=== PATIENT | female | born 1950 | race Caucasian/White ===

== ENCOUNTER 2018-10-28 19:08 | Inpatient (IN) ==
--- NOTE | 2018-10-28 19:31 | PDOC ---
Gen Adult / Medical Screen HPI - General Chief Complaint: General Medical Stated Complaint: New Rx and has not felt good since taking Date Seen by Provider: 10/28/18 Time Seen by Provider: 19:23 Source: POSITIVE: Patient Exam Limitations: POSITIVE: No limitations Nurse's Notes Reviewed & Considered: Yes - History of Present Illness Initial Comments: This is a well-developed, well-nourished, 68-year-old female complaining of ab dominal pain with nausea and vomiting. Patient had a sudden onset of nausea and vomiting that began this morning after taking the medication she was prescribed last Monday. On Monday she was started on prednisone for some back pain. She had no adverse responses until this morning. She presents now with tremulousness, nausea, and vomiting. She is clammy to the touch. She denies any headache, no sore throat, no chest pain or shortness of breath, she does have nausea and vomiting but denies any diarrhea, she does have epigastric and right upper quadrant abdominal pain, denies any hematuria or dysuria, she does have sweats and chills but denies any measured fevers. Patient admits to 3-4 b eers once a week however family member present states she drinks every day. Body Location Affected: REPORTS: Abdomen Timing: REPORTS: Abrupt Duration: <24 hours Similar Symptoms Previously: No Recent Care Received: REPORTS: Recently Seen, Treated by MD Any Prior Injuries Related to Current Complaint?: No - Patient Home Medications Home Medications: Home Medications RX: Betamethasone/Propylene Glyc [Diprolene AF 0.05% Cream] 0.5 gm TOPICAL BID #1 tube 09/01/14 RX: Olmesartan/Hydrochlorothiazide [BENICAR HCT] 1 tab ORAL QD #90 tab 11/25/15 spironolactone 50 mg tablet 50 mg PO QD #90 tab 04/26/17 potassium chloride ER 10 mEq capsule,extended release 10 meq PO QDAY #30 cap 02/08/18 escitalopram 20 mg tablet 20 mg PO QDAY #90 tab 03/28/18 mupirocin 2 % topical ointment 1 applic TOPICAL BID #22 g 06/13/18 olmesartan 40 mg-hydrochlorothiazide 12.5 mg tablet 1 tab PO QDAY #90 tab 06/21/18 omeprazole 20 mg capsule,delayed release 40 mg PO QDAY #180 cap 07/13/18 prednisone 10 mg tablet See Rx Instructions PO QDAY #15 tab 10/25/18 tramadol 50 mg tablet See Rx Instructions PO Q8H PRN #40 tab 10/25/18 - Patient Allergies Allergies/Adverse Reactions: Allergies Allergy/AdvReac Type Severity Reaction Status Date / Time No Known Allergies Allergy Verified 10/28/18 19:13 Past Medical History - heen HEENT History: Denies History Cardiovascular History: Hypertension, Hyperlipidemia Respiratory History: Snoring Gastrointestinal History: GERD Genitourinary History: Other (please comment) Additional Genitourinary History: 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 Endocrine History: Denies History Musculoskeletal History: Arthritis, Back Pain Prosthesis or Implant: Yes (B KNEE) Additional Musculoskeletal History: psoriatic arthritis Neurological History: Migraines Blood Disorders: Denies History Psychiatric History: Depression, Anxiety Disorders History of Sexually Transmitted Diseases: No Female Reproductive History: Denies History Obstetrical History: Denies History Cancer History: Skin In Past Year Been Physically Harmed or Verbally Threatened: No History of MDRO: No History of Other Communicable Diseases: No Tobacco Use: Never Smoker Alcohol Use: Occasionally In the Past 12 Months, Have Used or Abuse Any Substance: None Previous Surgical History: Yes Type / Date of Surgery: SHOAIB TKR. PARTIAL HYST. NECK FUSION. RIGHT ANKLE SURGERY. PARTIAL RIGHT KIDNEY REMOVAL DUE TO A BENIGN MASS Anesthesia Reactions: No Malignant Hyperthermia: No Significant Family History: No pertinent family hx Additional Family History: MOTHER-HEART/CA ROS - Limitations ROS Limitations: No Limitations Constitution: REPORTS: Chills, Diaphoresis Cardiovascular: REPORTS: Denies Cardiac Symptoms Respiratory: REPORTS: Denies Resp Symptoms Neurological: REPORTS: Other (Tremulousness) Gastrointestinal: REPORTS: Abdominal Pain, Nausea, Vomitting Endocrine: REPORTS: Denies Symptoms Musculoskeletal: REPORTS: Denies MS Symptoms Genitourinary: REPORTS: Denies Symptoms Eyes: REPORTS: Denies Symptoms ENT: REPORTS: Denies Symptoms Skin: REPORTS: Diaphoresis Lympathic: REPORTS: Denies Lympathic Symptoms Immunologic: POSITIVE: Denies Symptoms Psychiatric: POSITIVE: Denies Psych Symptoms Gen Adult/Medical Screen Exam - General Appearance General Appearance: POSITIVE: Alert, Cooperative, No Evidence of Trauma, Severe Distress - HEENT HEENT: POSITIVE: Head Inspection Nml, Eyes Inspection Nml, Ears Inspection Nml, Nose Inspection Nml, Oral/Dental Inspect. Nml, Pharynx Inspect. Nml, PERRL, EOMI - Pupils Pupil Size: 4 mm: Bilateral - Neck Neck: POSITIVE: Normal Inspection - Respiratory Respiratory: POSITIVE: No Respiratory Distress, Breath Sounds Normal, Chest Non- Tender - Cardiovascular Cardiovascular: POSITIVE: Regular Rate & Rhythm, No Murmur, No Gallop, PMI Normal Peripheral Pulses: Radial (L): 4+ - Abdomen Abdomen: Soft: (All Quadrants), Normal Bowel Sounds: (All Quadrants), Denies Tenderness: (All Quadrants), No Splenomegaly: (All Quadrants), No Hepatomegaly: (All Quadrants), No Guarding: (All Quadrants), No Rebound: (All Quadrants), No Palpable Pulse: (All Quadrants), No Palpabale Mass: (All Quadrants), No Distention: (All Quadrants), No Rigidity: (All Quadrants) - Back Back: POSITIVE: Normal Inspection - Neurological / Psychological Mental Status: POSITIVE: Mood Normal, Affect Normal Orientation: POSITIVE: Oriented x 3 - Skin Skin: POSITIVE: Normal Color, Warm, No Rash, Diaphoresis - Extremities Extremity: Non-Tender: (All Extremities), Normal ROM: (All Extremities), Normal Inspection: (All Extremities), Pelvis Stable: (All Extremities) Procedures - Laceration/Wound Repair Did patient have a laceration repair: No Gen Adlt/Medical Scrn Progress - Results Reviewed by me Xrays/CTs/US Reviewed by me: Yes Discussed with Radiologist: Yes Lab Results Reviewed by Me: Yes CBC and BMP: 10/28/18 19:50 10/28/18 19:50 Lab Results:: Laboratory Results 10/28/18 10/28/18 10/28/18 19:50 19:50 19:50 WBC 9.52 RBC 3.27 L Hgb 12.4 Hct 33.8 L MCV 103.4 H MCH 37.9 H MCHC 36.7 RDW Std Deviation 50.4 H RDW Coeff of [place] 13.7 Plt Count 195 MPV 9.6 Immature Gran % (Auto) 0.2 Neut % (Auto) 88.1 H Lymph % (Auto) 3.0 L [place] % (Auto) 8.7 Eos % (Auto) 0 Baso % (Auto) 0 Immature Gran # (Auto) 0.02 Neut # (Auto) 8.38 Lymph # (Auto) 0.29 [place] # (Auto) 0.83 H Eos # (Auto) 0 Baso # (Auto) 0 WBC Morphology Comment Normal morphology Plt Morphology Comment Normal morphology RBC Morph Comment See comments VBG pH VBG pCO2 VBG HCO3 VBG Base Excess Sodium 132 L Potassium 4.0 Chloride 96 L Carbon Dioxide 15 L Anion Gap 21 H BUN 57 H Creatinine 1.4 H Estimated GFR 37 BUN/Creatinine Ratio 40.71 H Glucose 105 Calculated Osmolality 289.0 Lactic Acid 5.2 H Calcium 10.1 Total Bilirubin 1.0 GGT 108 H AST 82 H ALT 50 Alkaline Phosphatase 90 Total Creatine Kinase 107 CK-MB (CK-2) Troponin I Handheld Total Protein 8.5 H Albumin 4.8 Globulin 3.7 Albumin/Globulin Ratio 1.20 L Amylase 659 H Lipase 7523 H* TSH Serum Alcohol 10/28/18 10/28/18 10/28/18 19:50 19:50 19:50 WBC RBC Hgb Hct MCV MCH MCHC RDW Std Deviation RDW Coeff of [place] Plt Count MPV Immature Gran % (Auto) Neut % (Auto) Lymph % (Auto) [place] % (Auto) Eos % (Auto) Baso % (Auto) Immature Gran # (Auto) Neut # (Auto) Lymph # (Auto) [place] # (Auto) Eos # (Auto) Baso # (Auto) WBC Morphology Comment Plt Morphology Comment RBC Morph Comment VBG pH 7.53 H VBG pCO2 20 L VBG HCO3 16 L VBG Base Excess -6 L Sodium Potassium Chloride Carbon Dioxide Anion Gap BUN Creatinine Estimated GFR BUN/Creatinine Ratio Glucose Calculated Osmolality Lactic Acid Calcium Total Bilirubin GGT AST ALT Alkaline Phosphatase Total Creatine Kinase CK-MB (CK-2) 3.56 Troponin I Handheld 0.000 Total Protein Albumin Globulin Albumin/Globulin Ratio Amylase Lipase TSH 0.480 Serum Alcohol 10/28/18 19:50 WBC RBC Hgb Hct MCV MCH MCHC RDW Std Deviation RDW Coeff of [place] Plt Count MPV Immature Gran % (Auto) Neut % (Auto) Lymph % (Auto) [place] % (Auto) Eos % (Auto) Baso % (Auto) Immature Gran # (Auto) Neut # (Auto) Lymph # (Auto) [place] # (Auto) Eos # (Auto) Baso # (Auto) WBC Morphology Comment Plt Morphology Comment RBC Morph Comment VBG pH VBG pCO2 VBG HCO3 VBG Base Excess Sodium Potassium Chloride Carbon Dioxide Anion Gap BUN Creatinine Estimated GFR BUN/Creatinine Ratio Glucose Calculated Osmolality Lactic Acid Calcium Total Bilirubin GGT AST ALT Alkaline Phosphatase Total Creatine Kinase CK-MB (CK-2) Troponin I Handheld Total Protein Albumin Globulin Albumin/Globulin Ratio Amylase Lipase TSH Serum Alcohol 55 H EKG Interpretation:: POSITIVE: Normal Sinus Rhythm, Normal ST/T - Patient's Progress Pain Medication Addressed: POSITIVE: Yes Re-Examine Time: 21:39 Status: POSITIVE: Improved MDM / ED Course: Patient was evaluated, an IV started, blood drawn and sent to lab for studies, EKG, chest x-ray, and CT of her abdomen were obtained. Findings: CBC shows white count of 9.52, hemoglobin of 12.4, hematocrit 33.8, with a neutrophil predominance of 88.1% and lymphocytes are 3%. Blood gases show pH of 7.53, PCO2 of 20, bicarbonate 16, base excess is -6. CMP shows abnormalities with a sodium of 132, chloride of 96, BUN of 57, CO2 of 15, c reatinine 1.4, anion gap of 21, AST of 108, ALT of 82, the remainder the panel was normal. Amylase is elevated at 659, lipase is elevated at 7523. Lactic acid is elevated at 3.2. Gamma GT is 108. TSH is normal at 0.480. EKG, per my interpretation, shows sinus rhythm with a rate of 84 beats a minute no ST elevations. Chest x-ray shows bibasilar opacity suggestive of atelectasis versus infiltrate with an enlarged cardiomediastinal silhouette. CT scan of her abdomen, per my interpretation, shows inflammation around the pancreas indicative of pancreatitis. Blood alcohol is 55 Assessment: #1 Pancreatitis, alcohol induced. #2 alcohol intoxication. #3 anemia. #4 hyponatremia. #5 renal insufficiency. Plan: Patient being admitted NPO and she is receiving normal saline, Zofran, pain medicine, and Ativan. - Consult Consult (If Yes, Name of Consulting MD & Time Called): Yes (Dr. Naranjo) Consulting MD will see pt:: POSITIVE: [facility] [place] Admit Counseled: POSITIVE: Patient, Family, RE: Lab Results, RE: Radiology Results, RE: DX, RE: Need for F/U Patient Care Time - Estimated PCT Patient Care Time (In Minutes): 60 Vital Signs - Recent Vital Signs Vital Signs: Vital Signs (Last 8 hours) Temp Pulse Resp BP Pulse Ox 10/28/18 19:08 97.7 F 93 22 150/91 98 - VS Reviewed Vital Signs Reviewed: Yes Discharge Clinical Impression: Pancreatitis Discharge Disposition: Admit to Inpatient Condition: Stable Patient Problem(s) Reviewed: Yes Date Decision to Admit to Inpatient: 10/28/18 Time Decision to Admit to Inpatient: 21:34
[2018-10-28] MEDS ORDERED: MORPHINE SULFATE 2 MG/1 ML IVP ONE (19:32)
[2018-10-28] MEDS ORDERED: Sodium Chloride 0.9% 1,000 ML PRIMARY IV ONE ×2 (19:32→21:00)
[2018-10-28] MEDS ORDERED: LORazepam 2 MG/1 ML VIAL IVP ONE (19:32)
[2018-10-28] MEDS ORDERED: ONDANSETRON 4 MG/2 ML VIAL IVP ONE (19:32)
--- NOTE | 2018-10-28 19:47 | EKG ---
[address] [address] Measurements Intervals [place] Rate: 84 P: 68 [place]: 186 QRS: 44 QRSD: 101 T: 46 QT: 381 QTc: 422 Interpretive Statements SINUS RHYTHM No previous ECG available for comparison Electronically Signed On 10-29-18 12:48:14 MDT by Marshal Carrizales MD [email or web address]
[2018-10-28 20:00] LABS: BASOPHILS # (AUTO) 0 10*3/UL; BASOPHILS % (AUTO) 0 % (0-1); EOSINOPHILS # (AUTO) 0 10*3/UL; EOSINOPHILS % (AUTO) 0 % (0-8); Hematocrit [HCT] 33.8 % (37.0-47.0); Hemoglobin [HGB] 12.4 g/dL (12.0-16.0); LYMPHOCYTES # (AUTO) 0.29 10*3/uL; MEAN CORPUSCULAR HEMOGLOBIN 37.9 PG (27-31); MEAN CORPUSCULAR HGB CONC 36.7 g/dL (33-37); MEAN CORPUSCULAR VOLUME 103.4 FL (81-99); MEAN PLATELET VOLUME 9.6 FL (7.4-12.2); MONOCYTES # (AUTO) 0.83 10*3/UL (0.3-0.8); MONOCYTES % (AUTO) 8.7 % (5-15); NEUTROPHILS # (AUTO) 8.38 10*3/UL; NEUTROPHILS % (AUTO) 88.1 % (50-80); RED BLOOD COUNT 3.27 10^6/uL (4.20-5.40)
[2018-10-28 20:07] LABS: VENOUS PH 7.53 (7.32-7.42)
[2018-10-28 20:10] LABS: PLATELET MORPHOLOGY COMMENT NORMAL MORPHOLOGY (NORM); RBC MORPHOLOGY COMMENT SEE COMMENTS (NORM); WBC MORPHOLOGY COMMENT NORMAL MORPHOLOGY (NORM)
[2018-10-28 20:11] LABS: BUN/CREATININE RATIO 40.71 (6-20); SERUM ALBUMIN 4.8 g/dL (3.5-4.8)
--- NOTE | 2018-10-28 21:00 | DI ---
EXAM: XR Chest, 1 View CLINICAL HISTORY: ITS.REASON epigastric pain Physician Notes: Tech Comments: TECHNIQUE: Frontal view of the chest. COMPARISON: 03/23/2009. FINDINGS: Lungs: Bibasilar opacities which represent atelectasis or developing infiltrate. Mildly prominent pulmonary vascularity. Pleural space: No significant pleural effusion or pneumothorax. Heart: Enlarged cardiomediastinal silhouette. Mediastinum: See above. Bones/joints: Spinal hardware noted. IMPRESSION: 1. Bibasilar opacities which represent atelectasis or developing infiltrate. 2. Enlarged cardiomediastinal silhouette.
--- NOTE | 2018-10-28 22:13 | DI ---
EXAM: CT Abdomen and Pelvis Without Intravenous Contrast CLINICAL HISTORY: ITS.REASON pain Physician Notes: Tech Comments: TECHNIQUE: Axial computed tomography images of the abdomen and pelvis without intravenous contrast. COMPARISON: CT 10/07/15. FINDINGS: Limitations: Evaluation of the abdominal viscera is limited without intravenous contrast. Lung bases: Bibasilar scarring/atelectasis. Mediastinum: Small hiatal hernia. ABDOMEN: Liver: Unremarkable. Gallbladder and bile ducts: Mildly distended gallbladder with dense material. Pancreas: Extensive peripancreatic stranding and fluid compatible with pancreatitis. No organized fluid collection. Evaluation for pancreatic necrosis is limited without contrast. Spleen: Unremarkable. Adrenals: Unremarkable. Kidneys and ureters: Postsurgical changes at the right inferior kidney with nodular densities in the adjacent fat, unclear significance. Hydronephrosis or ureteral stone. Right upper pole renal hypodensity, minimally larger now measuring 2.5 cm. Stomach and bowel: Scattered colonic diverticula. Areas of mild colonic wall thickening or underdistention. Duodenal wall thickening, may be reactive. PELVIS: Appendix: No findings to suggest acute appendicitis. Bladder: Unremarkable. Reproductive: Unremarkable as visualized. ABDOMEN and PELVIS: Intraperitoneal space: No free air. Bones/joints: Degenerative changes in the spine. Soft tissues: Small fat-containing ventral hernias. Vasculature: Atherosclerotic disease. Lymph nodes: Unremarkable. Other findings: Findings suggestive of pelvic floor relaxation. IMPRESSION: 1. Peripancreatic stranding and fluid compatible with pancreatitis. 2. Postsurgical changes at the right inferior kidney with nodular densities in the adjacent fat, unclear significance. Followup imaging may be considered if there is concern for malignant etiology. 3. Additional findings, as above.
[2018-10-28] MEDS ORDERED: LIDOCAINE W/ SODIUM BICARB 0.5 ML SYR SUBD PRN ×2 (22:42→22:48)
[2018-10-28] MEDS ORDERED: DOCUSATE 100 MG CAPSULE PO PRN (22:42)
[2018-10-28] MEDS ORDERED: LORazepam 1 mg tab (ETOH withdrawal) PO PRN (22:48)
--- NOTE | 2018-10-28 22:58 | PDOC ---
HPI - History of Present Illness Date of Service: 10/28/18 Time of Service: 22:00 Chief Complaint: Abdominal pain that started today, back pain and right scapular pain of 2 weeks' duration History of Present Illness: This is a 68 years old female with medical history significant for history of hypertension, hypercholesterolemia and history of psoriatic arthritis on some kind of IV infusion she's not sure about the name maybe Tati, who presented to the hospital with history vomiting multiple times today and pain described as in the middle of the abdomen in addition she did report that she's been having back pain for the last 2 weeks in addition to right scapular pain. Pain is constant. No diarrhea. Apparently she did go see Dr. Greco few days ago she was put on prednisone. Abdominal pain according to her started today though there was no vomiting or abdominal pain yesterday. She came into the ER and had multiple investigations. lab test did show acute renal failure, pancreatitis, she was given fluids and pain medication. Alcohol level was more than 55, then she was admitted. She rates her pain now maybe 8-9 out of 10. Mainly in the abdomen. When asked specifically about alcohol she said she didn't drink today maybe she had a drink last night. She said she drinks a few times a month. Past Medical History Medical History: 1. Hypertension. 2. History of psoriatic arthritis, she said she was on Enbrel and was switched to IV infusion not sure about the name the last one was a few months ago. 3. History of hypercholesterolemia. 4. History of depression Surgical History: 1. History of hysterectomy. 2. History of lumbar spinal fusion. 3. History of knee replacement. 4. History of removal of the lower parts of the right kidney, she said is not malignant Family History: Reviewed an Not Pertinent Past Social History: She doesn't smoke, no drugs, she said that she drinks a few times a month. Tobacco Use: Never Smoker In the Past 12 Months, Have Used or Abuse Any of the Following Substance: None Medication / Allergies Home Medications: Home Medications Medication Instructions Recorded Confirmed Betamethasone/Propylene Glyc 0.5 gm TOPICAL BID #1 tube 09/01/14 10/28/18 [Diprolene AF 0.05% Cream] Olmesartan/Hydrochlorothiazide 1 tab ORAL QD #90 tab 11/25/15 02/04/16 [BENICAR HCT] spironolactone 50 mg tablet 50 mg PO QD #90 tab 04/26/17 10/28/18 potassium chloride ER 10 mEq 10 meq PO QDAY #30 cap 02/08/18 10/28/18 capsule,extended release escitalopram 20 mg tablet 20 mg PO QDAY #90 tab 03/28/18 10/28/18 mupirocin 2 % topical ointment 1 applic TOPICAL BID #22 g 06/13/18 10/28/18 olmesartan 40 1 tab PO QDAY #90 tab 06/21/18 10/28/18 mg-hydrochlorothiazide 12.5 mg tablet omeprazole 20 mg capsule,delayed 40 mg PO QDAY #180 cap 07/13/18 10/28/18 release prednisone 10 mg tablet See Rx Instructions PO QDAY #15 tab 10/25/18 10/28/18 tramadol 50 mg tablet See Rx Instructions PO Q8H PRN #40 10/25/18 10/28/18 tab Allergies/Adverse Reactions: Allergies Allergy/AdvReac Type Severity Reaction Status Date / Time No Known Allergies Allergy Verified 10/28/18 19:13 Review of Systems - Review of Systems All Systems: Reviewed & No Additional Complaints Except as Stated Exam - Vitals Vital Signs: Vital Signs Temperature 97.9 F Temperature Source Temporal Artery Scan Pulse Rate [Pulse Oximeter] 110 Pulse Rate 89 Respiratory Rate 20 Blood Pressure [Left Arm] 150/91 Blood Pressure 131/88 Pulse Ox 92 Oxygen Delivery Method Room Air Height 5 ft 6 in Weight 195 lb - General Additional General Exam Details: Mucous membrane dry, she has tremor - Head Head Exam: Normal Inspection - Eye Eye Exam: POSITIVE: Normal Appearance - ENT ENT Exam: POSITIVE: Normal Exam - Neck Neck Exam: Normal Inspection - Respiratory Respiratory Exam: POSITIVE: Clear to Auscultation - Bilaterally - Cardiovascular Cardiovascular Exam: POSITIVE: Tachycardia - GI/Abdominal GI/Abdominal Exam: POSITIVE: Normal Bowel Sounds, Non Distended, Soft, No Organomegaly Additional GI/Abdominal Exam Details: Tenderness is present in the reny-umbilical area - Rectal Rectal Exam: POSITIVE: Deferred - External Exam: POSITIVE: Deferred - Extremities Extremities Exam: POSITIVE: Normal Inspection - Back Back Exam: POSITIVE: Normal Inspection - Neurological Neurological Exam: POSITIVE: Alert, Oriented x 3, CN II-XII Intact, No Facial Droop, Speech Intact / Clear, Moves All Extremities Equally - Psychiatric Psychiatric Exam: POSITIVE: Normal Affect - Integumentary Integumentary Exam: POSITIVE: Dry Results - Labs CBC and BMP: 10/29/18 04:29 10/29/18 04:29 - EKG Data -: EKG Interpreted by Me Rate: Normal EKG Shows Normal: Sinus Rhythm - EKG Data EKG Interpretation: Other Additional EKG Details: There is some deviation and ST segment in leads 2 and aVF, uncertain significance may be a nonischemic clinical variant, will repeat her troponin. - Imaging Status: Report Reviewed by Me (CT abdomen 1. Peripancreatic stranding and fluid compatible with pancreatitis. 2. Postsurgical changes at the right inferior kidney with nodular densities in the adjacent fat, unclear significance. Followup imaging may be considered if there is concern for malignant etiology.) Assessment and Plan - Patient Problems (1) Pancreatitis Current Visit: Yes Status: Acute Comment: Likely acute alcoholic pancreatitis. However because of the distention of the gallbladder that was described on CT Will order ultrasound of the abdomen tomorrow. Code(s): K85.90 - Acute pancreatitis without necrosis or infection, unspecified (2) Acute renal failure Current Visit: Yes Status: Acute Comment: Likely secondary to dehydration, will hydrate her and repeat her labs in the morning. Code(s): N17.9 - Acute kidney failure, unspecified (3) History of hypertension Current Visit: Yes Status: Acute Comment: We'll watch her blood pressure depending on her kidney function tomorrow will decide about restarting her medication. Code(s): Z86.79 - Personal history of other diseases of the circulatory system (4) Depression Current Visit: Yes Status: Acute Comment: Same medication Code(s): F32.9 - Major depressive disorder, single episode, unspecified (5) Increased anion gap metabolic acidosis Current Visit: Yes Status: Acute Comment: She has an anion gap metabolic acidosis, probably secondary to lactic acidosis and the renal failure, the pH is high though indicating also presence of respiratory alkalosis with the metabolic acidosis. Code(s): E87.2 - Acidosis (6) Lactate blood increase Current Visit: Yes Status: Acute Comment: Likely secondary to hypoperfusion from fluid loss, will order blood culture and will continue with hydration and repeate labs Code(s): R79.89 - Other specified abnormal findings of blood chemistry
[2018-10-28] MEDS: MORPHINE SULFATE 2 MG/1 ML IVP PRN (23:08)
[2018-10-28] MEDS: LORazepam Inj(ETOH withdrawal) 2 MG/ML VIAL IVP PRN (23:09)
[2018-10-28] MEDS: Lactated Ringers 1,000 ML PRIMARY IV SCH (23:18)
[2018-10-29] MEDS: LORazepam Inj(ETOH withdrawal) 2 MG/ML VIAL IVP PRN ×5 (02:15→22:31)
[2018-10-29 05:15] LABS: BASOPHILS # (AUTO) 0 10*3/UL; BASOPHILS % (AUTO) 0 % (0-1); EOSINOPHILS # (AUTO) 0 10*3/UL; EOSINOPHILS % (AUTO) 0 % (0-8); Hematocrit [HCT] 30.4 % (37.0-47.0); Hemoglobin [HGB] 10.9 g/dL (12.0-16.0); LYMPHOCYTES # (AUTO) 0.31 10*3/uL; MEAN CORPUSCULAR HEMOGLOBIN 37.8 PG (27-31); MEAN CORPUSCULAR HGB CONC 35.9 g/dL (33-37); MEAN CORPUSCULAR VOLUME 105.6 FL (81-99); MONOCYTES # (AUTO) 0.69 10*3/UL (0.3-0.8); MONOCYTES % (AUTO) 9.7 % (5-15); NEUTROPHILS # (AUTO) 6.09 10*3/UL; NEUTROPHILS % (AUTO) 85.5 % (50-80); RED BLOOD COUNT 2.88 10^6/uL (4.20-5.40)
[2018-10-29 06:24] LABS: PLATELET MORPHOLOGY COMMENT NORMAL MORPHOLOGY (NORM); RBC MORPHOLOGY COMMENT NORMAL MORPHOLOGY (NORM); WBC MORPHOLOGY COMMENT NORMAL MORPHOLOGY (NORM)
[2018-10-29 06:27] LABS: BILIRUBIN,URINE NEGATIVE (NEG); CLARITY,URINE CLEAR (CLEAR); COLOR,URINE YELLOW (Y); GLUCOSE, URINE (UA) NEGATIVE (NEG); OCCULT BLOOD,URINE NEGATIVE (NEG); PROTEIN,URINE NEGATIVE (NEG); UROBILINOGEN,URINE 0.2 EU/dL (0.2)
[2018-10-29 06:38] LABS: BACTERIA,URINE FEW; RBC,URINE 0-1 /hpf; SQUAMOUS EPITHELIAL CELL,UR MODERATE; URINE SAMPLE TYPE VOIDED SPECIMEN
[2018-10-29 06:55] LABS: BUN/CREATININE RATIO 41.81 (6-20); SERUM ALBUMIN 3.8 g/dL (3.5-4.8)
[2018-10-29] MEDS: Lactated Ringers 1,000 ML PRIMARY IV SCH ×2 (07:19→18:52)
[2018-10-29] MEDS: MORPHINE SULFATE 2 MG/1 ML IVP PRN ×2 (07:22→22:32)
--- NOTE | 2018-10-29 08:20 | PDOC(PROG) ---
Date of Service: 10/29/18 Time of Service: 08:15 Interval History: Subjective She feel a little bit better today compared to last night. No vomiting since she's been here. She rates her abdominal pain maybe 7 out of 10. She did admit to the nurse from last night that she drinks more than what she told me. when I asked her again she was a still evasive but she said she drinks beer but not every day and she drinks also over the weekend and have some shots. Objective : Data - Labs CBC and BMP: 10/29/18 04:29 10/29/18 04:29 Objective : Exam - General Additional General Exam Details: Sleepy but arousable - Head Head Exam: Normal Inspection - Eye Eye Exam: Normal Appearance - ENT ENT Exam: Normal Exam - Neck Neck Exam: Normal Inspection - Respiratory Respiratory Exam: Clear to Auscultation - Bilaterally - Cardiovascular Cardiovascular Exam: RRR - GI/Abdominal GI/Abdominal Exam: Normal Bowel Sounds, Non Distended, Soft, No Organomegaly Additional GI/Abdominal Exam Details: Tenderness still in the epigastrium present - Rectal Rectal Exam: Deferred - External Exam: Deferred Exam: Deferred - Extremities Extremities Exam: Normal Inspection - Back Back Exam: Normal Inspection - Neurological Additional Neurological Exam Details: Sleepy but arousable no focal finding on exam. - Psychiatric Psychiatric Exam: Normal Affect - Integumentary Integumentary Exam: Normal Color Assessment and Plan - Patient Problems (1) Pancreatitis Current Visit: Yes Status: Acute Comment: Likely alcoholic pancreatitis. Continue IV hydration. After the ultrasound will probably put her on ice chips Code(s): K85.90 - Acute pancreatitis without necrosis or infection, unspecified (2) Acute renal failure Current Visit: Yes Status: Acute Comment: The kidney function is improving. Continue hydration. Code(s): N17.9 - Acute kidney failure, unspecified (3) History of hypertension Current Visit: Yes Status: Acute Comment: We'll watch her blood pressure Code(s): Z86.79 - Personal history of other diseases of the circulatory system (4) Depression Current Visit: Yes Status: Acute Comment: Same medications Code(s): F32.9 - Major depressive disorder, single episode, unspecified (5) Increased anion gap metabolic acidosis Current Visit: Yes Status: Acute Comment: This is resolved Code(s): E87.2 - Acidosis (6) Lactate blood increase Current Visit: Yes Status: Acute Comment: This is resolved Code(s): R79.89 - Other specified abnormal findings of blood chemistry
[2018-10-29] MEDS: ENOXAPARIN SODIUM 40 MG/0.4 ML SYRINGE SUBCUT SCH (10:28)
[2018-10-29] MEDS: ESCITALOPRAM 10 MG TABLET PO SCH (10:29)
--- NOTE | 2018-10-29 15:43 | DI ---
US Abdomen Limited 10/29/2018 8:00 AM History: [facility] [place] DI ^abdominal pain, pancreatitis Comparison: CT abdomen/pelvis 10/28/2018. Procedure: Amin scale and color doppler right upper quadrant ultrasound. Findings: The liver is normal in size, echogenicity, and echotexture. There are no focal lesions visu alized. The gallbladder is hydropic, without evidence of stones or pericholecystic fluid. There is a normal gallbladder wall measuring 2 mm. A sonographic Stern's sign was present. The common duct lópez ures 5 mm. There is no intrahepatic biliary ductal dilatation. The pancreas was not visualized due to shadowing bowel gas. The right kidney measures 9.3 cm in lengt h. There is no evidence of obstructive uropathy or echogenic shadowing nephroliths. There is a 2.6 x 2.0 x 2.5 cm simple cyst in the upper pole of the right kidney. There is no free fluid seen within t he hepatorenal space. Imaged portions of the aorta and IVC are within normal limits. Impression: 1. There is no cholelithiasis. A sonographic Stern's sign was present. Clinical correlation is recom mended. 2. The pancreas was not visualized due to shadowing bowel gas. 3. Simple right renal cyst.
[2018-10-29] MEDS: PANTOPRAZOLE IV 40 MG VIAL IVP SCH (22:50)
[2018-10-30] MEDS: LORazepam Inj(ETOH withdrawal) 2 MG/ML VIAL IVP PRN (03:34)
[2018-10-30] MEDS: Lactated Ringers 1,000 ML PRIMARY IV SCH ×4 (03:34→23:58)
[2018-10-30 05:05] LABS: BASOPHILS # (AUTO) 0 10*3/UL; BASOPHILS % (AUTO) 0 % (0-1); EOSINOPHILS # (AUTO) 0 10*3/UL; EOSINOPHILS % (AUTO) 0 % (0-8); Hematocrit [HCT] 29.4 % (37.0-47.0); Hemoglobin [HGB] 10.5 g/dL (12.0-16.0); LYMPHOCYTES # (AUTO) 0.81 10*3/uL; MEAN CORPUSCULAR HEMOGLOBIN 38.6 PG (27-31); MEAN CORPUSCULAR HGB CONC 35.7 g/dL (33-37); MEAN CORPUSCULAR VOLUME 108.1 FL (81-99); MEAN PLATELET VOLUME 10.1 FL (7.4-12.2); MONOCYTES # (AUTO) 0.65 10*3/UL (0.3-0.8); MONOCYTES % (AUTO) 8.7 % (5-15); NEUTROPHILS # (AUTO) 5.95 10*3/UL; NEUTROPHILS % (AUTO) 80.1 % (50-80); RED BLOOD COUNT 2.72 10^6/uL (4.20-5.40)
[2018-10-30 05:16] LABS: BLOOD UREA NITROGEN 22 mg/dL (7-22); BUN/CREATININE RATIO 31.42 (6-20); LIPASE 998 IU/L (23-300); SERUM ALBUMIN 3.4 g/dL (3.5-4.8)
[2018-10-30 05:25] LABS: PLATELET MORPHOLOGY COMMENT NORMAL MORPHOLOGY (NORM); RBC MORPHOLOGY COMMENT NORMAL MORPHOLOGY (NORM); WBC MORPHOLOGY COMMENT NORMAL MORPHOLOGY (NORM)
[2018-10-30] MEDS: PANTOPRAZOLE IV 40 MG VIAL IVP SCH (08:36)
[2018-10-30] MEDS: ESCITALOPRAM 10 MG TABLET PO SCH (08:36)
[2018-10-30] MEDS: ENOXAPARIN SODIUM 40 MG/0.4 ML SYRINGE SUBCUT SCH (08:36)
[2018-10-30] MEDS ORDERED: Acetaminophen 1000mg Inj 1,000 MG/100 ML VIAL IV PRN (22:09)
--- NOTE | 2018-10-30 22:24 | PDOC(PROG) ---
Date of Service: 10/30/18 Time of Service: 22:18 Interval History: Patient seen and evaluated earlier. Son, Marshal, present for evaluation. Patient's overall confusion is improved. Her confusion is improved but still present. No chest pain, shortness breath, nausea or vomiting. Not much of an appetite. Her alcohol abuse is really escalated over the last year with family stresses and situations for which she tried to cope with alcohol. Objective : Data - Labs CBC and BMP: 10/30/18 04:12 10/30/18 04:12 Additional Lab Results: 10/30/18 04:12 Calcium 9.3 Total Bilirubin 1.3 H AST 44 H ALT 37 Alkaline Phosphatase 59 Total Protein 6.2 Albumin 3.4 L Globulin 2.8 Amylase 193 H Lipase 998 H Objective : Exam - General General Appearance: No Acute Distress, Cooperative Additional General Exam Details: Vital Signs - Last Taken Temperature 98.4 F 10/30/18 20:45 Pulse Rate 76 10/30/18 21:00 Respiratory Rate 20 10/30/18 20:45 Blood Pressure 122/88 10/30/18 20:45 Pulse Ox 95 10/30/18 21:00 - Eye Eye Exam: No Scleral Icterus - ENT ENT Exam: Mucous Membranes Moist - Neck Neck Exam: JVP is not Raised - Respiratory Respiratory Exam: Clear to Auscultation - Bilaterally, Breathing Non Labored, Decreased Breath Sounds - Cardiovascular Cardiovascular Exam: RRR, No Murmur, No Clicks, No Gallops, No Rubs, No JVD - GI/Abdominal GI/Abdominal Exam: Normal Bowel Sounds, Non Tender, Non Distended, Soft - Extremities Extremities Exam: No Clubbing Present, No Edema Present, No Cyanosis Present - Neurological Neurological Exam: Alert, No Facial Droop, Speech Intact / Clear, Moves All Extremities Equally Additional Neurological Exam Details: She knew who she was, she knew she was in the hospital. Was not overly oriented to time. - Psychiatric Psychiatric Exam: Flat Affect Assessment and Plan - Patient Problems (1) Pancreatitis Current Visit: Yes Status: Acute Code(s): K85.90 - Acute pancreatitis without necrosis or infection, unspecified (2) Alcohol withdrawal Current Visit: Yes Status: Acute Code(s): F10.239 - Alcohol dependence with withdrawal, unspecified Qualifiers: Complication of substance-induced condition: with unspecified complication Qualified Code(s): F10.239 - Alcohol dependence with withdrawal, unspecified (3) Depression Current Visit: Yes Status: Acute Code(s): F32.9 - Major depressive disorder, single episode, unspecified Qualifiers: Depression Type: other depression Qualified Code(s): F32.89 - Other specified depressive episodes (4) Acute renal failure Current Visit: Yes Status: Resolved Code(s): N17.9 - Acute kidney failure, unspecified Qualifiers: Acute renal failure type: unspecified Qualified Code(s): N17.9 - Acute kidney failure, unspecified (5) History of partial nephrectomy Current Visit: Yes Status: Acute Code(s): Z90.5 - Acquired absence of kidney (6) Alcohol abuse Current Visit: Yes Status: Acute Code(s): F10.10 - Alcohol abuse, uncomplicated - Assessment / Plan Additional Assessment/Plan Details: Continue gut rest, IV fluids, stop morphine due to increasing confusion and sedation and switch to acetaminophen for pain. We'll give the Tylenol IV. Get head CT scan and make sure not missing anything there although there are no focal findings to suggest stroke. Speech is intact and clear. Strength is equal bilaterally. Check labs in a.m. Replace potassium. In terms of the discrepancy between kidney findings on CT scan and ultrasound, I think we should get the patient a follow-up urology appointment to evaluate further and determine whether or not any further imaging needs to be done to reevaluate this partial nephrectomy area. The ultrasound seems to suggest its a simple cyst. I would like to get an MRI scan of the abdomen to make sure that there is no evidence of stone. The total bilirubin is minimally elevated, and I want to make sure there is no common bile duct obstruction. I doubt that there is but I think for completeness sake this imaging study makes sense. I started to explore possible alcohol rehabilitation and treatment, and based on the patient's situation (her daughter is Agoraphobic, that'll significant malnutrition, and has some psychiatric issues that require the mother to care for her in the home), and the son works out of town and lives in a different town, intensive outpatient therapy with [facility] makes most sense. We'll have them evaluate when the patient is more mentally clear. I expect several more days of hospital stay due to the above. Continue CIWA protocol. Complex, multiple issues to monitor, IV medications to administer, and disposition issues to solve as noted above.
--- NOTE | 2018-10-30 23:54 | DI ---
History: ITS.REASON confusion Physician Notes: Tech Comments: Exam: CT HEAD Without Contrast Comparison: 06/13/2009 FINDINGS: No intracranial hemorrhage, mass effect or CT evidence of acute infarct. The ventricles are within limits and midline. The paranasal sinuses, mastoids and orbits appear within limits. IMPRESSION: No intracranial hemorrhage, mass effect or CT evidence of acute infarct. May follow-up with nonemergent MRI as warranted.
[2018-10-31] MEDS: PANTOPRAZOLE IV 40 MG VIAL IVP SCH (08:17)
[2018-10-31] MEDS: ENOXAPARIN SODIUM 40 MG/0.4 ML SYRINGE SUBCUT SCH (08:18)
[2018-10-31] MEDS: ESCITALOPRAM 10 MG TABLET PO SCH (08:18)
[2018-10-31] MEDS: Lactated Ringers 1,000 ML PRIMARY IV SCH ×3 (08:19→16:54)
[2018-10-31] MEDS: ONDANSETRON 4 MG/2 ML VIAL IVP PRN (08:48)
[2018-10-31] MEDS ORDERED: CYANOCOBALAMIN 1000 MCG/1 ML VIAL IM ONE (08:50)
[2018-10-31] MEDS: CHOLECALCIFEROL 1000 IU TABLET PO SCH (10:11)
[2018-10-31] MEDS: FOLIC ACID 1 MG TABLET PO SCH (10:11)
--- NOTE | 2018-10-31 10:11 | DI ---
MRI Abdomen WO Contrast 10/30/2018 12:58 PM History: [facility] [place] DI ^pancreatitis, question stone Comparison: Right upper quadrant ultrasound 10/29/2018. CT abdomen/pelvis 10/28/2018. Technique: Multiweighted, multiplanar noncontrast MRCP was performed per routine protocol. Findings: Patient motion during breath hold portion of the exam creates artifact that limits evaluati on of fine anatomic detail. There is signal dropout on opposed phase imaging to suggest hepatic steatosis. No focal lesions are p resent. The gallbladder is moderately distended with no filling defects. There is no gallbladder wall thicken ing or pericholecystic fluid. No intra- or extrahepatic biliary dilatation is noted. There are no def inite large filling defects in the common duct. The pancreatic duct is not dilated. There is normal t apering of the biliary tree to the level of the ampulla. There is no evidence of stricture or stenosi s. Moderate peripancreatic edema and fluid is noted. There is a 2.6 cm simple cyst in the upper pole of the right kidney and postsurgical changes along the inferior pole. There is mild bilateral pararenal fat stranding, a finding associated with chronic medical renal disease. The visualized portions of th e spleen and bilateral adrenal glands exhibit normal MR morphology. Hollow viscus organs demonstrate normal course and caliber. Vascular structures are intact. There is no retroperitoneal or mesenteric lymphadenopathy. Heart size is at the upper limits of normal. Tiny bilateral pleural effusions are no mary. The lung bases are otherwise clear. Osseous structures are unremarkable. Impression: 1. Limited examination due to patient motion. There is no definite cholelithiasis/choledocholithiasis or intra-/extrahepatic biliary dilatation. 2. Moderate peripancreatic edema and fluid is noted, most likely due to acute pancreatitis in the rep orted clinical setting. 3. Hepatic steatosis. 4. There are findings associated with chronic medical renal disease. 5. Borderline cardiomegaly. 6. Tiny bilateral pleural effusions.
[2018-10-31] MEDS: Multivitamin Tab 1 TAB PO SCH (10:12)
--- NOTE | 2018-10-31 13:43 | PDOC(PROG) ---
Date of Service: 10/31/18 Time of Service: 12:30 Interval History: no chest pain, no shortness of breath. has nausea but no vomiting. no abdominal pain. not confused. Objective : Data - Labs CBC and BMP: 10/30/18 04:12 10/30/18 04:12 Additional Lab Results: 10/31/18 10/31/18 10/31/18 04:52 04:52 04:52 Iron 40 TIBC 201 L % Saturation 19.90 Vitamin B12 229 L Vitamin D 25-Hydroxy < 12.8 L Serum Folate 5.22 - Imaging MRI Status: Report Reviewed by Me (MRI of abdomen no CBD blockage) X-Ray Status: Image Reviewed by Me (CT head negative for bleed.) Objective : Exam - General General Appearance: No Acute Distress, Cooperative Additional General Exam Details: Vital Signs - Last Taken Temperature 98.5 F 10/31/18 11:41 Pulse Rate 57 L 10/31/18 13:00 Respiratory Rate 16 10/31/18 11:41 Blood Pressure 143/71 10/31/18 11:41 Pulse Ox 99 10/31/18 13:00 - Eye Eye Exam: No Scleral Icterus - ENT ENT Exam: Mucous Membranes Moist - Neck Neck Exam: JVP is not Raised - Respiratory Respiratory Exam: Breathing Non Labored, Coarse Breath Sounds - Cardiovascular Cardiovascular Exam: RRR, No Murmur, No Clicks, No Gallops, No Rubs, No JVD - GI/Abdominal GI/Abdominal Exam: Normal Bowel Sounds, Non Tender, Non Distended, Soft - Extremities Extremities Exam: No Clubbing Present, No Edema Present, No Cyanosis Present - Neurological Neurological Exam: Alert, Oriented x 3, No Facial Droop, Speech Intact / Clear, Moves All Extremities Equally Assessment and Plan - Patient Problems (1) Pancreatitis Current Visit: Yes Status: Acute Code(s): K85.90 - Acute pancreatitis without necrosis or infection, unspecified Qualifiers: Chronicity: acute Pancreatitis type: alcohol induced (2) Alcohol withdrawal Current Visit: Yes Status: Acute Code(s): F10.239 - Alcohol dependence with withdrawal, unspecified Qualifiers: Complication of substance-induced condition: with unspecified complication Qualified Code(s): F10.239 - Alcohol dependence with withdrawal, unspecified (3) Depression Current Visit: Yes Status: Acute Code(s): F32.9 - Major depressive disorder, single episode, unspecified Qualifiers: Depression Type: other depression Qualified Code(s): F32.89 - Other specified depressive episodes (4) History of partial nephrectomy Current Visit: Yes Status: Acute Code(s): Z90.5 - Acquired absence of kidney (5) Alcohol abuse Current Visit: Yes Status: Acute Code(s): F10.10 - Alcohol abuse, uncomplicated (6) Iron deficiency anemia Current Visit: Yes Status: Acute Code(s): D50.9 - Iron deficiency anemia, unspecified Qualifiers: Iron deficiency anemia type: unspecified iron deficiency Qualified Code(s): D50.9 - Iron deficiency anemia, unspecified (7) Vitamin B 12 deficiency Current Visit: Yes Status: Acute Code(s): E53.8 - Deficiency of other specified B group vitamins (8) Vitamin D deficiency Current Visit: Yes Status: Acute Code(s): E55.9 - Vitamin D deficiency, unspecified - Assessment / Plan Additional Assessment/Plan Details: labs in AM advanced diet to clear liquids and slow IV fluids down I think alcohol withdrawal is resolving, so stop CIWA and benzodiazepines replace vitamin D and vitamin B12 and folic acid given low normal iron and anemia, will get the patient referred to surgery for colonoscopy for screening for colon cancer. will get [facility] consult to discuss alcohol rehab PT and OT
[2018-10-31] MEDS: ACETAMINOPHEN 325 MG TABLET PO PRN (20:14)
[2018-11-01 05:41] LABS: BASOPHILS # (AUTO) 0 10*3/UL; BASOPHILS % (AUTO) 0 % (0-1); EOSINOPHILS # (AUTO) 0.13 10*3/UL; EOSINOPHILS % (AUTO) 2.2 % (0-8); LYMPHOCYTES # (AUTO) 1.24 10*3/uL; MEAN CORPUSCULAR HEMOGLOBIN 36.9 PG (27-31); MEAN CORPUSCULAR HGB CONC 34.5 g/dL (33-37); MEAN PLATELET VOLUME 9.9 FL (7.4-12.2); MONOCYTES # (AUTO) 0.81 10*3/UL (0.3-0.8); MONOCYTES % (AUTO) 13.7 % (5-15); NEUTROPHILS % (AUTO) 62.6 % (50-80); RED BLOOD COUNT 2.71 10^6/uL (4.20-5.40)
[2018-11-01 06:05] LABS: BLOOD UREA NITROGEN 13 mg/dL (7-22); BUN/CREATININE RATIO 21.66 (6-20); LIPASE 321 IU/L (23-300); SERUM ALBUMIN 3.1 g/dL (3.5-4.8)
[2018-11-01 06:36] LABS: PLATELET MORPHOLOGY COMMENT NORMAL MORPHOLOGY (NORM); RBC MORPHOLOGY COMMENT NORMAL MORPHOLOGY (NORM); WBC MORPHOLOGY COMMENT NORMAL MORPHOLOGY (NORM)
[2018-11-01] MEDS: ONDANSETRON 4 MG/2 ML VIAL IVP PRN ×2 (07:44→19:06)
[2018-11-01] MEDS: ACETAMINOPHEN 325 MG TABLET PO PRN ×2 (08:01→19:06)
[2018-11-01] MEDS: ENOXAPARIN SODIUM 40 MG/0.4 ML SYRINGE SUBCUT SCH (08:41)
[2018-11-01] MEDS: PANTOPRAZOLE IV 40 MG VIAL IVP SCH (08:41)
[2018-11-01] MEDS: FOLIC ACID 1 MG TABLET PO SCH (08:42)
[2018-11-01] MEDS: ESCITALOPRAM 10 MG TABLET PO SCH (08:42)
[2018-11-01] MEDS: CHOLECALCIFEROL 1000 IU TABLET PO SCH (08:42)
[2018-11-01] MEDS: Multivitamin Tab 1 TAB PO SCH (08:43)
--- NOTE | 2018-11-01 09:14 | PTI REPORT ---
Thank you for the referral of Lesvia Hernandez. She was seen on 10/31/18 for an inpatient evaluation secondary to weakness and deconditioning. SUBJECTIVE: The patient is a 68-year-old female who states that this last Monday morning, 10/28/2018, she woke up with complaints of stomach ache and shakes. She reports that a friend brought her into the ER that same day and from there she was hospitalized. The patient states that her stomach pain was improving over the last couple of days, but today it started up again and she is complaining of nausea. She reports a pain level of 4/10 on the verbal analog scale (0=no pain, 10=worst pain) at this time but denies any vomiting. The patient reports that she lives here in [place] with her daughter. She reports that they live in a bi-level home with bilateral hand railings on their steps. The patient reports that she did not use an assistive device prior to her recent hospitalization and denies any falls over the last three months. The patient also reports that she was independent with all ADLs. The patient reports that since being hospitalized she has been getting up with staff to ambulate short distances to and from the bathroom. She states that she feels a little off balance and usually needs something to hold onto and does feel weak. PAST MEDICAL HISTORY: Past medical history can be found in the patient's medical record. OBJECTIVE FINDINGS: General observations: The patient was alert and oriented to setting upon PT arrival. The patient did have an IV in place. There was oxygen next to her bed set at one liter, but the patient did not have it on when PT arrived. She reported that she didn't feel short of breath and she was at 92-93% at rest. Bed mobility: The patient was able to transfer from supine to seated edge of bed with stand by assist x1 for safety and she did require some additional time to maneuver herself to the edge of the bed. With initially sitting up the patient complained of some dizziness and lightheadedness which subsided after sitting for a short period of time. The patient demonstrated good seated edge of bed balance. The patient was able to transfer back into bed with stand by assist x1 for safety. Strength: We were able to complete a seated manual muscle test for bilateral lower extremities. The patient demonstrates 3/5 bilateral hip and 4/5 bilateral knee and ankle strength. The patient did have some difficulties initiating motion and did require additional time, especially for initiating hip flexion or marching her knees up and also for kicking out into a long arc quad. Transfers: A gait belt was placed around the patient and she transferred from sitting to standing position with contact guard assist x1 for safety. The patient demonstrated fair initial standing balance with hand hold assist x1. She reported she was a little dizzy initially with standing and that subsided quickly. The patient was able to transfer from stand to sit. Her stats were taken at this time and her heart rate was 105 beats per minute and her oxygen saturation was 90%. Ambulation: The patient was able to ambulate 25 feet. She did demonstrate a widened base of support and also shortened step length bilaterally. She was able to initiate that motion quicker vs. her seated lower extremity motion but was a little off balance without hand old assist and demonstrated a very shortened stride length. Once in the bathroom she transferred to sitting on the toilet and was able to complete toileting activity with stand by assist x1 along with toileting hygiene with stand by assist. The patient ambulated 25 feet back to her bed. ASSESSMENT: The patient has fair rehab potential secondary to her age and past medical history. Problem List: Generalized weakness Decreased endurance/activity tolerance Antalgic gait Short-Term Goals: To be met by discharge from inpatient: Patient will be able to ambulate 150 feet safely and independently. Patient will be able to ascend and descend one flight of stairs safely and independently. Patient will be able to tolerate 30 minutes of physical therapy activity, maintaining oxygen saturation above 90% for strengthening and balance in order to be safe to return back home. Long-Term Goals: To be met following discharge from inpatient: Patient may need to be seen by outpatient physical therapy if deemed necessary upon time of discharge. TREATMENT PLAN: Patient will be seen B.I.D during the week and one time per day over the weekend as an inpatient to address the above goals and objectives. With patient's current function, she may be appropriate for swingbed when the time comes in order to improve her overall strength and mobility as she is fatiguing very easily with minimal activity and is a high fall risk with the way she is ambulating and moving at this time. INITIAL TREATMENT: Treatment today consisted of the initial evaluation followed by one unit of functional activity. Following treatment the patient was left in bed with SCDs placed on bilateral feet, bed alarm set, and call light within reach. [email or web address]
--- NOTE | 2018-11-01 12:03 | PT.PROG ---
Progress Note Progress Note: S. Patient agreed to do exercises in her room. She reported she is feeling shaky this morning. O. Patient performed seated exercises in the form of; long arc quads, heel toe raises, pillow squeezes, resisted knee flexion, marches, all x 10 bilaterally, sit to stands x 5. Patient was left in her chair with alarm and call light. A. patient tolerated therapy fair this morning, she was tired from working with OT and did not feel up to doing more standing exercises. Patient would continue to benefit from skilled therapy to increase strength, endurance and safety at this time. P. Continue POC.
--- NOTE | 2018-11-01 16:38 | PT.PROG ---
Progress Note Progress Note: S. patient stated she is feeling a little better this afternoon, she agreed to go for a walk. O. Patient ambulated 150 feet around the nurses station then performed seated exercises in the form of; long arc quads, heel toe raises, pillow squeezes all x 10 bilaterally. Patient was left in bed with alarm and call light. A. patient tolerated therapy fair this afternoon, Patient was fatigued from ambulation however was able to ambulate further than this morning. Patient would continue to benefit from skilled therapy to increase strength, endurance and safety at this time. P. Continue POC.
[2018-11-01] MEDS: Lactated Ringers 1,000 ML PRIMARY IV SCH (16:41)
--- NOTE | 2018-11-01 16:49 | OT.PROG ---
Progress Note Progress Note: S: pt stated she was doing ok. O: pt was seen in her room and completed Ue exercises with RTB in all planes x20 with BUE's to increase UE strength. A: pt participated well, the RTB may have been to much resistance and may need to back down. P: continue per POC.
[2018-11-01] MEDS ORDERED: Iron Sucrose Inj 500 MG in Sodium Chloride 0.9% 250 ML IV ONE (20:44)
--- NOTE | 2018-11-01 20:47 | PDOC(PROG) ---
Date of Service: 11/01/18 Time of Service: 20:42 Interval History: Patient seen, evaluated earlier today. States she had some nausea this morning but relieved with antiemetics. Patient states she vomited but did not report to the nurse. No chest pain and no shortness of breath. Has increased appetite Alert and oriented to place, time, situation. She is interested in alcohol rehabilitation. I spoke with the son, all questions answered. Seems happy with the plan of care. Objective : Data - Labs CBC and BMP: 11/01/18 04:44 11/01/18 04:44 Additional Lab Results: 10/31/18 10/31/18 10/31/18 04:52 04:52 04:52 Iron 40 TIBC 201 L % Saturation 19.90 Total Bilirubin AST ALT Alkaline Phosphatase Total Protein Albumin Globulin Albumin/Globulin Ratio Lipase Vitamin B12 229 L Vitamin D 25-Hydroxy < 12.8 L Serum Folate 5.22 11/01/18 04:44 Iron TIBC % Saturation Total Bilirubin 1.1 AST 42 H ALT 32 Alkaline Phosphatase 69 Total Protein 5.8 L Albumin 3.1 L Globulin 2.7 Albumin/Globulin Ratio 1.10 L Lipase 321 H Vitamin B12 Vitamin D 25-Hydroxy Serum Folate Objective : Exam - General General Appearance: No Acute Distress, Cooperative Additional General Exam Details: Vital Signs - Last Taken Temperature 97.4 F 11/01/18 17:00 Pulse Rate 70 11/01/18 19:00 Respiratory Rate 18 11/01/18 19:00 Blood Pressure 170/88 11/01/18 17:00 Pulse Ox 94 11/01/18 19:00 - Eye Eye Exam: No Scleral Icterus - ENT ENT Exam: Mucous Membranes Moist - Neck Neck Exam: JVP is not Raised - Respiratory Respiratory Exam: Clear to Auscultation - Bilaterally, Breathing Non Labored - Cardiovascular Cardiovascular Exam: RRR, No Murmur, No Clicks, No Gallops, No Rubs, No JVD - GI/Abdominal GI/Abdominal Exam: Normal Bowel Sounds, Non Tender, Non Distended, Soft - Extremities Extremities Exam: No Clubbing Present, No Edema Present, No Cyanosis Present - Neurological Neurological Exam: Alert, Oriented x 3, No Facial Droop, Speech Intact / Clear, Moves All Extremities Equally - Psychiatric Psychiatric Exam: Flat Affect Assessment and Plan - Patient Problems (1) Pancreatitis Current Visit: Yes Status: Acute Code(s): K85.90 - Acute pancreatitis without necrosis or infection, unspecified Qualifiers: Chronicity: acute Pancreatitis type: alcohol induced (2) Alcohol withdrawal Current Visit: Yes Status: Resolved Code(s): F10.239 - Alcohol dependence with withdrawal, unspecified Qualifiers: Complication of substance-induced condition: with unspecified complication Qualified Code(s): F10.239 - Alcohol dependence with withdrawal, unspecified (3) Depression Current Visit: Yes Status: Acute Code(s): F32.9 - Major depressive disorder, single episode, unspecified Qualifiers: Depression Type: other depression Qualified Code(s): F32.89 - Other specified depressive episodes (4) History of partial nephrectomy Current Visit: Yes Status: Acute Code(s): Z90.5 - Acquired absence of kidney (5) Alcohol abuse Current Visit: Yes Status: Acute Code(s): F10.10 - Alcohol abuse, uncomplicated (6) Iron deficiency anemia Current Visit: Yes Status: Acute Code(s): D50.9 - Iron deficiency anemia, unspecified Qualifiers: Iron deficiency anemia type: unspecified iron deficiency Qualified Code(s): D50.9 - Iron deficiency anemia, unspecified (7) Vitamin B 12 deficiency Current Visit: Yes Status: Acute Code(s): E53.8 - Deficiency of other specified B group vitamins (8) Vitamin D deficiency Current Visit: Yes Status: Acute Code(s): E55.9 - Vitamin D deficiency, un specified - Assessment / Plan Additional Assessment/Plan Details: Stop all narcotics. By mouth Tylenol for pain when necessary. Will give dose of IV iron. Replacing vitamin B12 and I think she will need intramuscular injections on a monthly basis. Replacing vitamin D Get [facility] to evaluate for potential intensive outpatient alcohol rehabilitation program. Advance diet to regular diet Replace potassium If all goes well, hopefully for discharge within the next 24-48 hours assuming patient responds well to regular diet. We'll check labs in a.m. to see what happens with the potassium with repeat today.
[2018-11-02] MEDS: ACETAMINOPHEN 325 MG TABLET PO PRN ×2 (01:42→09:06)
[2018-11-02 05:38] LABS: BLOOD UREA NITROGEN 11 mg/dL (7-22); BUN/CREATININE RATIO 18.33 (6-20)
[2018-11-02] MEDS: PANTOPRAZOLE 40 MG TABLET PO SCH (07:39)
[2018-11-02] MEDS ORDERED: Magnesium Sulfate 2gm (Premix) 2 GM/50 ML BAG IV ONE (08:55)
[2018-11-02] MEDS: FOLIC ACID 1 MG TABLET PO SCH (09:05)
[2018-11-02] MEDS: Multivitamin Tab 1 TAB PO SCH (09:05)
[2018-11-02] MEDS: CHOLECALCIFEROL 1000 IU TABLET PO SCH (09:05)
[2018-11-02] MEDS: ESCITALOPRAM 10 MG TABLET PO SCH (09:05)
[2018-11-02] MEDS: ENOXAPARIN SODIUM 40 MG/0.4 ML SYRINGE SUBCUT SCH (09:05)
[2018-11-02] MEDS: Thiamine Tab 100 MG TAB PO SCH (09:06)
[2018-11-02] MEDS: POTASSIUM CHLORIDE 20 MEQ TAB PO SCH (09:11)
[2018-11-02] MEDS ORDERED: Sodium Chloride 0.9% 1,000 ML PRIMARY IV SCH (11:00)
--- NOTE | 2018-11-02 12:06 | OT.PROG ---
Progress Note Progress Note: OT Daily Note 11/03/18 S: pt was seen after PT exercises. pt reports she is doing ok. O: pt completed bed mobility supine to sit mod I. pt then completed red theraband B UE tricep extension, bicep flexion, rows x 20 reps, pt completed shoulder extension/flexion no resistance x 20. pt completed 10 sit to stands CGA. A: pt is slowly progressing with questionable balance. P:cont per POC
--- NOTE | 2018-11-02 13:41 | PDOC(PROG) ---
Date of Service: 11/02/18 Time of Service: 13:36 Interval History: seen, evaluated earlier no chest pain, no nausea or vomiting abdominal pain is easing up but states epigastric pain is still present. advanced diet late AM Objective : Data - Labs CBC and BMP: 11/01/18 04:44 11/02/18 04:30 Objective : Exam - General General Appearance: No Acute Distress, Cooperative Additional General Exam Details: Vital Signs - Last Taken Temperature 98.3 F 11/02/18 13:00 Pulse Rate 100 11/02/18 13:00 Respiratory Rate 14 11/02/18 13:00 Blood Pressure 130/75 11/02/18 13:00 Pulse Ox 94 11/02/18 13:00 - Eye Eye Exam: No Scleral Icterus - ENT ENT Exam: Mucous Membranes Moist - Neck Neck Exam: JVP is not Raised - Respiratory Respiratory Exam: Clear to Auscultation - Bilaterally, Breathing Non Labored - Cardiovascular Cardiovascular Exam: RRR, No Murmur, No Clicks, No Gallops, No Rubs, No JVD - GI/Abdominal GI/Abdominal Exam: Normal Bowel Sounds, Non Distended, Soft - Extremities Extremities Exam: No Clubbing Present, No Edema Present, No Cyanosis Present - Neurological Neurological Exam: Alert, Oriented x 3, No Facial Droop, Speech Intact / Clear, Moves All Extremities Equally Assessment and Plan - Patient Problems (1) Pancreatitis Current Visit: Yes Status: Acute Code(s): K85.90 - Acute pancreatitis without necrosis or infection, unspecified Qualifiers: Chronicity: acute Pancreatitis type: alcohol induced (2) Alcohol withdrawal Current Visit: Yes Status: Resolved Code(s): F10.239 - Alcohol dependence with withdrawal, unspecified Qualifiers: Complication of substance-induced condition: with unspecified complication Qualified Code(s): F10.239 - Alcohol dependence with withdrawal, unspecified (3) Depression Current Visit: Yes Status: Acute Code(s): F32.9 - Major depressive disorder, single episode, unspecified Qualifiers: Depression Type: other depression Qualified Code(s): F32.89 - Other specified depressive episodes (4) History of partial nephrectomy Current Visit: Yes Status: Acute Code(s): Z90.5 - Acquired absence of kidney (5) Alcohol abuse Current Visit: Yes Status: Acute Code(s): F10.10 - Alcohol abuse, uncomplicated (6) Iron deficiency anemia Current Visit: Yes Status: Acute Code(s): D50.9 - Iron deficiency anemia, unspecified Qualifiers: Iron deficiency anemia type: unspecified iron deficiency Qualified Code(s): D50.9 - Iron deficiency anemia, unspecified (7) Vitamin B 12 deficiency Current Visit: Yes Status: Acute Code(s): E53.8 - Deficiency of other specified B group vitamins (8) Vitamin D deficiency Current Visit: Yes Status: Acute Code(s): E55.9 - Vitamin D deficiency, unspecified - Assessment / Plan Additional Assessment/Plan Details: RN reported finding patient today, "painting with her own poop"--get cognitive evaluation with [facility] continue replacing potassium check labs magnesium vitamins to be replaced with deficiencies patient reports she has a substance abuse intake and appointments arranged with [facility] for alcohol cessation therapy. probably home tomorrow.
--- NOTE | 2018-11-02 14:15 | PTI REPORT ---
Thank you for the referral of Lesvia Hernandez. She was seen on 11/01/18 for an occupational therapy inpatient evaluation secondary to weakness. SUBJECTIVE: The patient is a 68-year-old female who reports that she lives in [place], [place] with her daughter. They live in a bi-level home. The patient reports that she was independent at prior level of function in all ADLs and iADLs to include grocery shopping, cooking, and cleaning. She does report that she assists her daughter on occasion and her daughter assists her on occasion. The patient is not on oxygen at home; however, she is on one liter of oxygen while sleeping in the hospital. The patient reports pain in her right shoulder blade with mobility and moving around as well as her back with prolonged standing tasks. The patient reports that she has several stairs to the entrance of her home as well as within the home itself with handrails on either side. She does have a tub/shower combo and there is a shower chair in the tub that she was using at prior level of function. The patient has a standard toilet. The patient's son was present at the time of the evaluation. The patient's primary concern at this time is generalized weakness. The patient does report that she has had a couple of falls at home; however, is not sure of the degree or nature of the falls. PAST MEDICAL HISTORY: Past medical history can be found in the patient's medical record. OBJECTIVE FINDINGS: General observations: The patient was supine in bed upon the therapist's arrival. The patient was oriented to person, place, date, and reason for hospitalization. Range of motion: The patient demonstrated upper extremity range of motion for the shoulders bilaterally at 75% of full with full range of motion in the elbow, hand, and wrist bilaterally. Strength: Upper extremity strength is 4/5 bilaterally in the shoulder, elbow, hand, and wrist. Bed mobility: The patient demonstrated the ability to move from supine to sitting edge of bed independently. The patient tolerated sitting edge of bed for 5+ minutes without difficulty while the patient was assisted in changing into a clean gown. Transfers: The patient did complete a functional sit to stand transfer from edge of bed with contact guard assist. Ambulation: The patient ambulated to the bathroom with contact guard assist with IV pole without the use of an assistive device. Activities of daily living: The patient completed a toileting task to include functional transfer, clothing management, and toilet hygiene with stand by assistance only. She then moved to the sink and stood for 6.5 minutes where she completed brushing her teeth, washing her face, and brushing her hair with stand by assistance. The patient did report fatigue and required a rest break sitting in recliner chair. ASSESSMENT: The patient may benefit from skilled occupational therapy in order to increase strength and activity tolerance in order to promote safely and independence upon return to home. Short-Term Goals: To be met by discharge from inpatient: Patient will increase activity tolerance and standing balance to stand at the sink x10 minutes to assist with small meal preparation and or grooming tasks with no losses of balance. Patient will demonstrate the ability to complete lower and upper extremity dressing tasks independently. Patient will be able to complete a seated showering task with stand by assistance only to include washing and drying all areas of her body. Patient will increase bilateral upper extremity strength by one manual muscle grade. Long-Term Goals: To be met following discharge from inpatient: Patient will return home to prior level of function and be independent in all ADLs. TREATMENT PLAN: Patient will be seen B.I.D during the week and one time per day over the weekend as an inpatient to address the above goals and objectives. INITIAL TREATMENT: Treatment today consisted of the initial evaluation followed by functional activities of daily living to include teeth brushing, face washing, toileting, and hair brushing. Following treatment the patient was left in recliner chair with nursing staff. YULIYA
--- NOTE | 2018-11-02 16:00 | PT.PROG ---
Progress Note Progress Note: S. patient stated she would go for a walk this morning, she reports that her stomach hurts very bad. O. Patient ambulated 75 feet in the greer and back to her room where she performed seated long arc quads, heel toe raises, marches, heel toe raises all x 10 bilaterally. Patient was left in bed with alarm and call light. A. Patient tolerated therapy fair, she continues to have weakness and reaches for the robertson and hand rails during ambulation. She would continue to benefit from skilled therapy to increase strength, endurance and safety at this time. P. Continue POC.
--- NOTE | 2018-11-02 16:02 | PT.PROG ---
Progress Note Progress Note: S. patient stated she is feeling better this afternoon. O. Patient ambulated 75 feet in the greer and back to her room where she performed seated long arc quads, heel toe raises, marches, heel toe raises all x 10 bilaterally. Patient was left in bed with alarm and call light. A. Patient tolerated therapy fair, she used the IV pole for balance during ambulation this afternoon. She would continue to benefit from skilled therapy to increase strength, endurance and safety at this time. P. Continue POC.
--- NOTE | 2018-11-02 17:04 | OT.PROG ---
Progress Note Progress Note: Occupational Therapy S: Pt. reports that she is feeling better this afternoon. Pt. agrees to participate in evaluation. O: Treatment consisted of bilateral UE strengthening and cognitive screening. Pt. completed bilateral strengthening with Red TB for shoulder flexion, shoulder extension, horizontal abduction, rows, biceps curls and triceps extension 2 X 10 each. Pt. also participated in a cognitive screening per orders. The results are as follows: Graham Cognitive Assessment (MOCA) Visuospatial/Executive:4/5 Namin/3 Attention: 6/6 Language: 3/3 Abstraction: 2/2 Delayed Recall: 5/5 Orientation: 5/6 Total Score: 28/30 A: Cognitive screening indicates cognitive functioning is within normal limits. Continue to monitor for further concerns. Pt. demonstrated the ability to complete cognitive screening within normal time limits and did not require repeated directions. P: Continue POC. PRADIP Dhaliwal/Naresh
[2018-11-02 17:33] LABS: BLOOD UREA NITROGEN 9 mg/dL (7-22)
[2018-11-02] MEDS: CALCIUM CARBONATE 500 MG (TUMS) CHEWABLE TABLET PO PRN (21:07)
[2018-11-03] MEDS: ONDANSETRON 4 MG/2 ML VIAL IVP PRN (00:46)
[2018-11-03] MEDS: Thiamine Tab 100 MG TAB PO SCH (08:04)
[2018-11-03] MEDS: ENOXAPARIN SODIUM 40 MG/0.4 ML SYRINGE SUBCUT SCH (08:04)
[2018-11-03] MEDS: ESCITALOPRAM 10 MG TABLET PO SCH (08:04)
[2018-11-03] MEDS: PANTOPRAZOLE 40 MG TABLET PO SCH (08:04)
[2018-11-03] MEDS: POTASSIUM CHLORIDE 20 MEQ TAB PO SCH (08:04)
[2018-11-03] MEDS: FOLIC ACID 1 MG TABLET PO SCH (08:04)
[2018-11-03] MEDS: CHOLECALCIFEROL 1000 IU TABLET PO SCH (08:04)
[2018-11-03] MEDS: Multivitamin Tab 1 TAB PO SCH (08:04)
--- NOTE | 2018-11-03 09:22 | DI ---
EXAM: XR Left Wrist Complete, 3 or More Views. CLINICAL HISTORY: Left wrist infection. TECHNIQUE: Frontal, lateral and oblique views of the left wrist. COMPARISON: No relevant prior studies available. FINDINGS: Bones: There is no evidence of acute osseous abnormality. Bone density is normal. No periosteal reaction. Joints: No dislocation. Intercarpal and radiocarpal joint spaces are preserved. Soft tissues: Moderate soft tissue swelling of the wrist, especially along the dorsal and ulnar aspects. IMPRESSION: Moderate soft tissue swelling of the left wrist, which absent any trauma history is most likely associated with a cellulitis. No evidence of acute underlying osseous abnormality.
--- NOTE | 2018-11-03 10:07 | PDOC(PROG) ---
Date of Service: 11/03/18 Time of Service: 10:03 Interval History: Overall better from pancreatitis. Had some nausea but no vomiting. No increase in pain. No chest pain and no shortness breath. On exam, noticed dorsal wrist swelling and redness and tenderness to palpation and the patient stated that her wrist started hurting sometime yesterday. Spoke with the nurses it sounds like her IV infiltrated but this looks consistent with cellulitis and possible joint infection. I spoke with and consult orthopedics and they felt that it was more consistent with soft tissue infection but they did not think the joint was involved. They placed the patient on a dorsal splint and recommended antibiotics at hospitalist discretion. Objective : Data - Labs CBC and BMP: 11/01/18 04:44 11/02/18 17:00 Objective : Exam - General General Appearance: No Acute Distress, Cooperative Additional General Exam Details: Vital Signs - Last Taken Temperature 98.4 F 11/03/18 07:09 Pulse Rate 80 11/03/18 07:09 Respiratory Rate 20 11/03/18 07:09 Blood Pressure 131/66 11/03/18 07:09 Pulse Ox 91 11/03/18 07:09 Selected Entries 11/03/18 04:13 Temperature 99.3 F - Eye Eye Exam: No Scleral Icterus - ENT ENT Exam: Mucous Membranes Moist - Neck Neck Exam: JVP is not Raised - Respiratory Respiratory Exam: Clear to Auscultation - Bilaterally, Breathing Non Labored - Cardiovascular Cardiovascular Exam: RRR, No Murmur, No Clicks, No Gallops, No Rubs, No JVD - GI/Abdominal GI/Abdominal Exam: Normal Bowel Sounds, Non Tender, Non Distended, Soft - Extremities Extremities Exam: No Clubbing Present, No Edema Present, No Cyanosis Present, Joint Swelling (Over left dorsal wrist. Soft tissue swelling. She has full movement in her wrist. Please see orthopedic note for full details of exam as well, but I'm very encouraged that orthopedics does not feel that the joint is infected itself.) - Neurological Neurological Exam: Alert, Oriented x 3, No Facial Droop, Speech Intact / Clear, Moves All Extremities Equally Assessment and Plan - Patient Problems (1) Cellulitis of left wrist Current Visit: Yes Status: Acute Code(s): L03.114 - Cellulitis of left upper limb (2) Pancreatitis Current Visit: Yes Status: Resolved Code(s): K85.90 - Acute pancreatitis wit hout necrosis or infection, unspecified Qualifiers: Chronicity: acute Pancreatitis type: alcohol induced (3) Alcohol withdrawal Current Visit: Yes Status: Resolved Code(s): F10.239 - Alcohol dependence with withdrawal, unspecified Qualifiers: Complication of substance-induced condition: with unspecified complication Qualified Code(s): F10.239 - Alcohol dependence with withdrawal, unspecified (4) Depression Current Visit: Yes Status: Acute Code(s): F32.9 - Major depressive disorder, single episode, unspecified Qualifiers: Depression Type: other depression Qualified Code(s): F32.89 - Other specified depressive episodes (5) History of partial nephrectomy Current Visit: Yes Status: Acute Code(s): Z90.5 - Acquired absence of kidney (6) Alcohol abuse Current Visit: Yes Status: Acute Code(s): F10.10 - Alcohol abuse, uncomplicated (7) Iron deficiency anemia Current Visit: Yes Status: Acute Code(s): D50.9 - Iron deficiency anemia, unspecified Qualifiers: Iron deficiency anemia type: unspecified iron deficiency Qualified Code(s): D50.9 - Iron deficiency anemia, unspecified (8) Vitamin B 12 deficiency Current Visit: Yes Status: Acute Code(s): E53.8 - Deficiency of other specified B group vitamins (9) Vitamin D deficiency Current Visit: Yes Status: Acute Code(s): E55.9 - Vitamin D deficiency, unspecified - Assessment / Plan Additional Assessment/Plan Details: Unfortunately his cellulitis is iatrogenic and in the setting of IV infiltration . We will start Ancef 2 g IV every 8 hours. Dorsal splint as per orthopedics. Continue by mouth diet Check CBC with differential and basic metabolic panel today. I am anticipating the patient will need IV antibiotics today and tomorrow for the cellulitis, and hopefully we get her to by mouth antibiotics at some point by tomorrow evening and/or Monday morning. Patient has substance abuse intake examination with [facility] on 11/15/2018. She states that she has a good plan to refrain from alcohol abuse until then.
--- NOTE | 2018-11-03 10:10 | CONSULT ---
Consult Note - Consult Reason for Consult: Orthopedic Consult Primary Care Provider: ALAN Knight - History of Present Illness History of Present Illness: I was asked to consult on this pleasant 68-year-old female for left dorsal wrist swelling and cellulitis. She has been in the hospital for the past week for alcoholic pancreatitis. She was getting close to being discharged. She had an IV in the dorsal ulnar aspect of her wrist which was recently DC'd. Past day or so she has developed some redness and pain around the area. Dr. Díaz asked that I see the patient to make sure she did not have a septic joint. She was down in physical therapy when I evaluated her this morning. She complains of some discomfort in her wrist but not excessive pain. Examination of the left wrist reveals some localized redness to around a previous IV site. Located dorsal and ulnar to the wrist. She can flex her wrist to about 40 and extend to about 30. Not much tenderness to palpation over the radiocarpal joint. She is tender locally around the IV site was some localized erythema in that same location as well swelling. Passive and active w rist range of motion however does not seem to be consistent with a septic wrist at this juncture. X-rays of the left wrist were reviewed showing normal appearing joint other than the soft tissue swelling seen dorsally. No evidence of osteomyelitis. White blood cell count 2 days ago was 5.9 with no left shift. Impression: Localized cellulitis and edema secondary to IV site. Do not believe patient has a septic joint at this point. Plan: Is to make her dorsal Ortho-Glass splint which I did. That will help to provide some support and compression. Would recommend icing the wrist 3 times a day for 30 minutes. Recommend IV antibiotics as per Dr. Díaz. Nothing further recommend at this point in time. Past Medical History Medical History: 1. Hypertension. 2. History of psoriatic arthritis, she said she was on Enbrel and was switched to IV infusion not sure about the name the last one was a few months ago. 3. History of hypercholesterolemia. 4. History of depression Surgical History: 1. History of hysterectomy. 2. History of lumbar spinal fusion. 3. History of knee replacement. 4. History of removal of the lower parts of the right kidney, she said is not malignant Family History: Reviewed an Not Pertinent Past Social History: She doesn't smoke, no drugs, she said that she drinks a few times a month. Tobacco Use: Never Smoker In the Past 12 Months, Have Used or Abuse Any of the Following Substance: None Medication / Allergies Home Medications: Home Medications Medication Instructions Recorded Confirmed Olmesartan/Hydrochlorothiazide 1 tab ORAL QD #90 tab 11/25/15 02/04/16 [BENICAR HCT] escitalopram 20 mg tablet 20 mg PO QDAY #90 tab 03/28/18 10/28/18 mupirocin 2 % topical ointment 1 applic TOPICAL BID #22 g 06/13/18 10/28/18 olmesartan 40 1 tab PO QDAY #90 tab 06/21/18 10/28/18 mg-hydrochlorothiazide 12.5 mg tablet omeprazole 20 mg capsule,delayed 40 mg PO QDAY #180 cap 07/13/18 10/28/18 release prednisone 10 mg tablet See Rx Instructions PO QDAY #15 tab 10/25/18 10/28/18 Tramadol HCl 1 - 2 tab PO Q8H PRN 10/29/18 10/29/18 Allergies/Adverse Reactions: Allergies Allergy/AdvReac Type Severity Reaction Status Date / Time No Known Allergies Allergy Verified 10/31/18 20:22 Exam - Vitals Vital Signs: Vital Signs Temperature 98.4 F Temperature Source Oral Pulse Rate [Pulse Oximeter] 80 Pulse Rate [pulse ox] 70 Pulse Rate 100 Respiratory Rate 20 Blood Pressure [Right Arm] 135/76 Blood Pressure [Left Arm] 131/66 Blood Pressure 138/75 Pulse Ox [pulse ox] 94 Pulse Ox 91 Oxygen Flow Rate [pulse ox] 1 Oxygen Flow Rate 1 Oxygen Delivery Method [pulse Room Air ox] Oxygen Delivery Method Room Air Height 5 ft 6 in Weight 183 lb Results - Labs CBC and BMP: 11/01/18 04:44 11/02/18 17:00
--- NOTE | 2018-11-03 10:14 | PT.PROG ---
Progress Note Progress Note: S: pt reports she is doing well and ready to go home. O: nsg okay'd prior to PT. pt instructed in UBE 4/4 , 10 mins nu step, sit to stand x 10 reps. UE R theraband x 10 reps. doctor put a splint on her L UE. clams red x10 reps seated, ball squeezes x 10 reps. pt instructed to ambulate down to therapy gym and back with CGA x 1 150 each direction . pt instructed in dressing ind. pt left in chair with call light within reach and chair alarm activated. A: pt tolerated her program well. no LOB with walking. pt continues to benefit from skilled therapy P: cont per POC.
[2018-11-03 10:18] LABS: BASOPHILS # (AUTO) 0.02 10*3/UL; BASOPHILS % (AUTO) 0.3 % (0-1); EOSINOPHILS # (AUTO) 0.09 10*3/UL; EOSINOPHILS % (AUTO) 1.3 % (0-8); Hematocrit [HCT] 32.5 % (37.0-47.0); Hemoglobin [HGB] 11.3 g/dL (12.0-16.0); LYMPHOCYTES # (AUTO) 1.34 10*3/uL; MEAN CORPUSCULAR HEMOGLOBIN 36.9 PG (27-31); MEAN CORPUSCULAR HGB CONC 34.8 g/dL (33-37); MEAN CORPUSCULAR VOLUME 106.2 FL (81-99); MEAN PLATELET VOLUME 9.1 FL (7.4-12.2); MONOCYTES # (AUTO) 1.21 10*3/UL (0.3-0.8); MONOCYTES % (AUTO) 18.1 % (5-15); NEUTROPHILS # (AUTO) 3.99 10*3/UL; NEUTROPHILS % (AUTO) 59.8 % (50-80); RED BLOOD COUNT 3.06 10^6/uL (4.20-5.40)
[2018-11-03 10:23] LABS: PLATELET MORPHOLOGY COMMENT NORMAL MORPHOLOGY (NORM); RBC MORPHOLOGY COMMENT NORMAL MORPHOLOGY (NORM); WBC MORPHOLOGY COMMENT NORMAL MORPHOLOGY (NORM)
[2018-11-03 10:45] LABS: BLOOD UREA NITROGEN 7 mg/dL (7-22)
[2018-11-03] MEDS: ceFAZolin Inj 2 GM in Sodium Chloride 0.9% 100 ML IV SCH ×2 (11:36→19:16)
[2018-11-03] MEDS: ACETAMINOPHEN 325 MG TABLET PO PRN ×2 (16:10→21:57)
[2018-11-04] MEDS: CALCIUM CARBONATE 500 MG (TUMS) CHEWABLE TABLET PO PRN (01:35)
[2018-11-04] MEDS: ceFAZolin Inj 2 GM in Sodium Chloride 0.9% 100 ML IV SCH ×4 (03:18→21:07)
[2018-11-04 04:20] LABS: BASOPHILS # (AUTO) 0.02 10*3/UL; BASOPHILS % (AUTO) 0.3 % (0-1); EOSINOPHILS # (AUTO) 0.12 10*3/UL; EOSINOPHILS % (AUTO) 1.9 % (0-8); Hematocrit [HCT] 30.1 % (37.0-47.0); Hemoglobin [HGB] 10.5 g/dL (12.0-16.0); LYMPHOCYTES # (AUTO) 1.57 10*3/uL; MEAN CORPUSCULAR HEMOGLOBIN 37.1 PG (27-31); MEAN CORPUSCULAR HGB CONC 34.9 g/dL (33-37); MEAN CORPUSCULAR VOLUME 106.4 FL (81-99); MEAN PLATELET VOLUME 8.9 FL (7.4-12.2); MONOCYTES # (AUTO) 1.06 10*3/UL (0.3-0.8); MONOCYTES % (AUTO) 16.8 % (5-15); NEUTROPHILS # (AUTO) 3.48 10*3/UL; NEUTROPHILS % (AUTO) 55.1 % (50-80); RED BLOOD COUNT 2.83 10^6/uL (4.20-5.40)
[2018-11-04 04:26] LABS: BLOOD UREA NITROGEN 6 mg/dL (7-22); BUN/CREATININE RATIO 8.57 (6-20)
[2018-11-04 04:30] LABS: PLATELET MORPHOLOGY COMMENT NORMAL MORPHOLOGY (NORM); RBC MORPHOLOGY COMMENT NORMAL MORPHOLOGY (NORM); WBC MORPHOLOGY COMMENT NORMAL MORPHOLOGY (NORM)
[2018-11-04] MEDS: ACETAMINOPHEN 325 MG TABLET PO PRN ×2 (04:32→21:14)
[2018-11-04] MEDS: PANTOPRAZOLE 40 MG TABLET PO SCH (07:16)
[2018-11-04] MEDS: Multivitamin Tab 1 TAB PO SCH (08:50)
[2018-11-04] MEDS: CHOLECALCIFEROL 1000 IU TABLET PO SCH (08:50)
[2018-11-04] MEDS: ESCITALOPRAM 10 MG TABLET PO SCH (08:50)
[2018-11-04] MEDS: FOLIC ACID 1 MG TABLET PO SCH (08:50)
[2018-11-04] MEDS: ENOXAPARIN SODIUM 40 MG/0.4 ML SYRINGE SUBCUT SCH (08:50)
[2018-11-04] MEDS: Thiamine Tab 100 MG TAB PO SCH (08:50)
[2018-11-04] MEDS: POTASSIUM CHLORIDE 20 MEQ TAB PO SCH (10:04)
--- NOTE | 2018-11-04 10:50 | PT.PROG ---
Progress Note Progress Note: S: pt reports she is still awaiting to go home but is on antibiotic now for her infection in her wrist. O: pt instructed to ambulate CGA x 1 to therapy gym 150 feet. pt instructed in UBE x 10 mins, nu step x 10 mins. RUE 1# all planes , L 0# all planes , standing 4 way hip x 10, heel toe raises x 15 , standing marches x 1 min, box #2 x 15 reps, sit to stand x 10, ball squeezes x 20 reps, clams red x 20 reps. CGA x 1 for all standing activities. pt instructed to ambulate back too room 150 feet with CGA x 1 and left in room with proper alarms in place and call light within reach. A: pt tolerated therapy well today, slight LOB when caught foot on her sandal but able to self correct. pt mobility is doing well at this time. P: cont per POC.
[2018-11-04] MEDS ORDERED: ceFAZolin 1 GM VIAL ONE (11:23)
[2018-11-04] MEDS ORDERED: Sodium Chloride 0.9% 0 ML IV ONE (11:26)
--- NOTE | 2018-11-04 13:20 | PDOC(PROG) ---
Date of Service: 11/04/18 Time of Service: 13:18 Interval History: Seen and evaluated earlier. RNs present in room. Doing much better. Left wrist is sore. Overall soreness is better than it was yesterday. She feels much better and feels she can carry on a full conversation now. Abdominal pain is much better and she states that if she eats slow piece meals through the day it's much better than a big meal at once. No chest pain and no shortness breath Labs noted. No elevation in white blood cell count. I would like to do Ancef through the day and then switch to by mouth tomorrow reevaluate and replace a dorsal splint and arrange follow-ups with orthopedics and primary provider and hopefully discharge tomorrow. Objective : Data - Labs CBC and BMP: 11/04/18 04:04 11/04/18 04:04 Objective : Exam - General General Appearance: No Acute Distress, Cooperative Additional General Exam Details: Vital Signs - Last Taken Temperature 98.4 F 11/04/18 11:17 Pulse Rate 70 11/04/18 11:17 Respiratory Rate 20 11/04/18 11:17 Blood Pressure 140/75 11/04/18 11:17 Pulse Ox 96 11/04/18 11:17 - ENT ENT Exam: Mucous Membranes Moist - Neck Neck Exam: JVP is not Raised - Respiratory Respiratory Exam: Clear to Auscultation - Bilaterally, Breathing Non Labored - Cardiovascular Cardiovascular Exam: RRR, No Murmur, No Clicks, No Gallops, No Rubs, No JVD - GI/Abdominal GI/Abdominal Exam: Normal Bowel Sounds, Non Tender, Non Distended, Soft - Extremities Extremities Exam: No Clubbing Present, No Edema Present, No Cyanosis Present - Neurological Neurological Exam: Alert, Oriented x 3, No Facial Droop, Speech Intact / Clear, Moves All Extremities Equally Assessment and Plan - Patient Problems (1) Cellulitis of left wrist Current Visit: Yes Status: Acute Code(s): L03.114 - Cellulitis of left upper limb (2) Pancreatitis Current Visit: Yes Status: Resolved Code(s): K85.90 - Acute pancreatitis without necrosis or infection, unspecified Qualifiers: Chronicity: acute Pancreatitis type: alcohol induced (3) Alcohol withdrawal Current Visit: Yes Status: Resolved Code(s): F10.239 - Alcohol dependence with withdrawal, unspecified Qualifiers: Complication of substance-induced condition: with unspecified complication Qualified Code(s): F10.239 - Alcohol dependence with withdrawal, unspecified (4) Depression Current Visit: Yes Status: Acute Code(s): F32.9 - Major depressive disorder, single episode, unspecified Qualifiers: Depression Type: other depression Qualified Code(s): F32.89 - Other specified depressive episodes (5) History of partial nephrectomy Current Visit: Yes Status: Acute Code(s): Z90.5 - Acquired absence of kidney (6) Alcohol abuse Current Visit: Yes Status: Acute Code(s): F10.10 - Alcohol abuse, uncomplicated (7) Iron deficiency anemia Current Visit: Yes Status: Acute Code(s): D50.9 - Iron deficiency anemia, unspecified Qualifiers: Iron deficiency anemia type: unspecified iron deficiency Qualified Code(s): D50.9 - Iron deficiency anemia, unspecified (8) Vitamin B 12 deficiency Current Visit: Yes Status: Acute Code(s): E53.8 - Deficiency of other spe cified B group vitamins (9) Vitamin D deficiency Current Visit: Yes Status: Acute Code(s): E55.9 - Vitamin D deficiency, unspecified - Assessment / Plan Additional Assessment/Plan Details: Continue Ancef and dorsal splint. Add ice therapy Tylenol for pain when necessary. Vitamin replacement. Hopefully home tomorrow.
[2018-11-04] MEDS ORDERED: Olmesartan Tab 40 MG TAB PO ONE (16:19)
[2018-11-04] MEDS ORDERED: Cefepime Inj 2 GM in Sodium Chloride 0.9% 100 ML IV SCH (20:30)
[2018-11-04] MEDS ORDERED: ceFAZolin Inj 2gm (Premix) 2 GM/50 ML BAG IV ONE (20:33)
[2018-11-04] MEDS: ceFAZolin Inj 2gm (Premix) 2 GM/50 ML BAG IV SCH (21:05)
[2018-11-05] MEDS: ceFAZolin Inj 2gm (Premix) 2 GM/50 ML BAG IV SCH (05:17)
[2018-11-05] MEDS: ceFAZolin Inj 2 GM in Sodium Chloride 0.9% 100 ML IV SCH (05:19)
[2018-11-05] MEDS: PANTOPRAZOLE 40 MG TABLET PO SCH (06:32)
[2018-11-05 07:27] VITALS: O2SAT 95
[2018-11-05] MEDS: ENOXAPARIN SODIUM 40 MG/0.4 ML SYRINGE SUBCUT SCH (08:27)
[2018-11-05] MEDS: CHOLECALCIFEROL 1000 IU TABLET PO SCH (08:27)
[2018-11-05] MEDS: ESCITALOPRAM 10 MG TABLET PO SCH (08:27)
[2018-11-05] MEDS: Thiamine Tab 100 MG TAB PO SCH (08:27)
[2018-11-05] MEDS: Multivitamin Tab 1 TAB PO SCH (08:27)
[2018-11-05] MEDS: FOLIC ACID 1 MG TABLET PO SCH (08:27)
[2018-11-05] MEDS: POTASSIUM CHLORIDE 20 MEQ TAB PO SCH (08:28)
--- NOTE | 2018-11-05 10:20 | OT.PROG ---
Progress Note Progress Note: S: pt stated that she was feeling better today and is hoping to go home today. pt reports some soreness in L wrist. O: therapy consisted of bed mobility from supine to EOB independently, STS x1 independently, functional ambulation with CGA for safety x180', UBE x8 min, therputty strengthening exercises, 3# R UE biceps x25, 1# R UE chest press and shoulder press x20, 1# L UE biceps curls x15, power web x15 on R hand and x5 on L hand. A: pt tolerated session well. pt had some pain in L wrist during exercises. P: continue POC
--- NOTE | 2018-11-05 10:42 | PT.PROG ---
Progress Note Progress Note: S: Pt. states she is doing well today. Hoping to go home. O: Treatment consisted of functional activities: nu step x 13 minutes, sit to stands with 2# x 10, seated marches, and laq x 20 each. Pt. then ambulated back to her room and was left in her room. No concerns of LOB noted. A: Pt. continues to improve with strength and activity tolerance. She is hoping to be d/c this afternoon. Strength and endurance cagle, she would be appropriate for d/c. P: Continue per POC unless otherwise d/c from facility. Zuleyka Simeon PTA
[2018-11-05 11:05] VITALS: BP 127/66; RESP 18; TEMP 98.2
--- NOTE | 2018-11-05 11:29 | DCSUMMARY ---
Hospitalization Summary Hospital Course: Final Discharge Diagnosis: Current Visit Problems Problem Status Onset Code Pancreatitis Resolved K85.90 Acute renal failure Resolved N17.9 History of hypertension Acute Z86.79 Depression Acute F32.9 Increased anion gap metabolic acidosis Acute E87.2 Lactate blood increase Acute R79.89 Alcohol withdrawal Resolved F10.239 History of partial nephrectomy Acute Z90.5 Alcohol abuse Acute F10.10 Iron deficiency anemia Acute D50.9 Vitamin B 12 deficiency Acute E53.8 Vitamin D deficiency Acute E55.9 Cellulitis of left wrist Acute L03.114 Diagnostic Data, Laboratory Data, and Procedures of Signifigance: CBC and BMP 11/04/18 04:04 11/04/18 04:04 History and Physical pertinent to Admission: This is a 68 years old female with medical history significant for history of hypertension, hypercholesterolemia and history of psoriatic arthritis on some kind of IV infusion she's not sure about the name maybe Remgenode, who presented to the hospital with history vomiting multiple times today and pain described as in the middle of the abdomen in addition she did report that she's been having back pain for the last 2 weeks in addition to right scapular pain. Pain is constant. No diarrhea. Apparently she did go see Dr. Greco few days ago she was put on prednisone. Abdominal pain according to her started today though there was no vomiting or abdominal pain yesterday. She came into the ER and had multiple investigations. lab test did show acute renal failure, pancreatitis, she was given fluids and pain medication. Alcohol level was more than 55, then she was admitted. She rates her pain now maybe 8-9 out of 10. Mainly in the abdomen. When asked specifically about alcohol she said she didn't drink today maybe she had a drink last night. She said she drinks a few times a month. Past Medical History Medical History: 1. Hypertension. 2. History of psoriatic arthritis, she said she was on Enbrel and was switched to IV infusion not sure about the name the last one was a few months ago. 3. History of hypercholesterolemia. 4. History of depression Surgical History: 1. History of hysterectomy. 2. History of lumbar spinal fusion. 3. History of knee replacement. 4. History of removal of the lower parts of the right kidney, she said is not malignant Family History: Reviewed an Not Pertinent Past Social History: She doesn't smoke, no drugs, she said that she drinks a few times a month. Tobacco Use: Never Smoker In the Past 12 Months, Have Used or Abuse Any of the Following Substance: None Course of Hospitalization: Is a very nice 68-year-old female who was admitted the for alcoholic pancreatitis most likely secondary to alcohol also had some abnormal creatinine which normalized with IV fluids. She is tolerating food or pancreatitis resolved she will follow-up as an outpatient with her primary care physician and [facility] [employer] and she has an appointment already. She also developed an infiltrate in cellulitis of her left wrist we took the splint off redness is resolved the swelling is resolved no pain she will be discharged home and finish a seven-day course of Keflex 1000 mg every 12 On the date of discharge, the patient was examined: Gen.: No acute distress, alert, nontoxic Heart: Regular rate and rhythm, no murmurs, clicks, gallops, or rubs Lungs: Clear to auscultation bilaterally, breathing is nonlabored Abdomen/GI: Normal tones on auscultation, soft, nontender, nondistended Musculoskeletal/extremities: No clubbing, cyanosis, or edema left wrist no erythema or swelling or pain Vitals reviewed and are listed below Vital Signs (24 hrs) 11/04/18 16:03 11/04/18 19:00 11/04/18 20:19 Temperature 97.6 F 98.7 F Pulse Rate [Pulse Oximeter] 77 80 82 Respiratory Rate 14 20 Blood Pressure [Left Arm] 157/88 Blood Pressure [Right Arm] 136/79 Pulse Ox 95 94 11/05/18 00:00 11/05/18 04:23 11/05/18 07:26 Temperature 98.5 F 98.0 F 98.5 F Pulse Rate [Pulse Oximeter] 79 72 73 Respiratory Rate 20 20 17 Blood Pressure [Left Arm] 148/87 143/72 Blood Pressure [Right Arm] 127/62 Pulse Ox 96 93 95 11/05/18 11:03 Temperature 98.2 F Pulse Rate [Pulse Oximeter] 98 Respiratory Rate 18 Blood Pressure [Left Arm] 127/66 Blood Pressure [Right Arm] Pulse Ox 95 Assessment and Plan: 1. As per discharge assessments above 2. Disposition: Home 3. Condition on discharge, stable and improved. 4. Diet: regular diet 5. Activities: resume normal activities 6. Follow-Up: 1. PCP 2. 7. Medications at the Time of Discharge: Home Medications Medication Instructions Recorded Confirmed Olmesartan/Hydrochlorothiazide 1 tab ORAL QD #90 tab 11/25/15 02/04/16 [BENICAR HCT] escitalopram 20 mg tablet 20 mg PO QDAY #90 tab 03/28/18 10/28/18 mupirocin 2 % topical ointment 1 applic TOPICAL BID #22 g 06/13/18 10/28/18 olmesartan 40 1 tab PO QDAY #90 tab 06/21/18 10/28/18 mg-hydrochlorothiazide 12.5 mg tablet omeprazole 20 mg capsule,delayed 40 mg PO QDAY #180 cap 07/13/18 10/28/18 release prednisone 10 mg tablet See Rx Instructions PO QDAY #15 tab 10/25/18 10/28/18 Tramadol HCl 1 - 2 tab PO Q8H PRN 10/29/18 10/29/18 Cephalexin [Keflex] 1,000 mg PO Q12H #14 cap 11/05/18 8. Time, care, counseling and coordination of care for this discharge is greater than 30 minutes. Exam - Vitals Vital Signs: Vital Signs Temperature 98.2 F Temperature Source Temporal Artery Scan Pulse Rate [Pulse Oximeter] 98 Pulse Rate [pulse ox] 70 Pulse Rate 100 Respiratory Rate 18 Blood Pressure [Right Arm] 127/62 Blood Pressure [Left Arm] 127/66 Blood Pressure 138/75 Pulse Ox [pulse ox] 94 Pulse Ox 95 Oxygen Flow Rate [pulse ox] 1 Oxygen Flow Rate 1 Oxygen Delivery Method [pulse Room Air ox] Oxygen Delivery Method Room Air Height 5 ft 6 in Weight 182 lb 6.4 oz
== END 2018-11-05 12:27 | disposition home or self-care (01) | DRG 439 ==
LOC: ER 19:08 → MED/SURG 21:41
PROVIDERS: ADMIT Internal Medicine; ATTEND Internal Medicine

== ENCOUNTER 2018-11-22 11:20 | Inpatient (IN) ==
--- NOTE | 2018-11-22 11:48 | EKG ---
[address] [address] Measurements Intervals [place] Rate: 81 P: -28 AR: 153 QRS: 10 QRSD: 82 T: 9 QT: 366 QTc: 404 Interpretive Statements SINUS RHYTHM Compared to ECG 10/28/2018 19:47:22 No significant changes Electronically Signed On 11-22-18 11:55:23 MDT by Marshal Carrizales MD [email or web address]
[2018-11-22 12:12] LABS: BASOPHILS # (AUTO) 0.01 10*3/UL; BASOPHILS % (AUTO) 0.3 % (0-1); EOSINOPHILS # (AUTO) 0.21 10*3/UL; EOSINOPHILS % (AUTO) 5.3 % (0-8); Hematocrit [HCT] 30.7 % (37.0-47.0); Hemoglobin [HGB] 10.6 g/dL (12.0-16.0); LYMPHOCYTES # (AUTO) 1.14 10*3/uL; MEAN CORPUSCULAR HEMOGLOBIN 36.3 PG (27-31); MEAN CORPUSCULAR HGB CONC 34.5 g/dL (33-37); MEAN CORPUSCULAR VOLUME 105.1 FL (81-99); MEAN PLATELET VOLUME 9.3 FL (7.4-12.2); NEUTROPHILS # (AUTO) 2.23 10*3/UL; NEUTROPHILS % (AUTO) 55.6 % (50-80); RED BLOOD COUNT 2.92 10^6/uL (4.20-5.40)
[2018-11-22 12:15] LABS: PLATELET MORPHOLOGY COMMENT NORMAL MORPHOLOGY (NORM); RBC MORPHOLOGY COMMENT NORMAL MORPHOLOGY (NORM); WBC MORPHOLOGY COMMENT NORMAL MORPHOLOGY (NORM)
[2018-11-22 12:19] LABS: LIPASE 182 IU/L (23-300)
--- NOTE | 2018-11-22 12:20 | PDOC ---
General Adult HPI - General Chief Complaint: General Medical Stated Complaint: back pain Date Seen by Provider: 11/22/18 Time Seen by Provider: 11:40 Source: POSITIVE: Patient Exam Limitations: POSITIVE: No limitations Nurse's Notes Reviewed & Considered: Yes - History of Present Illness Initial Comment: The patient is a 68-year-old female who presents to the emergency department with complaints of mid and lower back pain. She states that she has been having issues with pain in her mid and lower back for at least the past [address] Greco yesterday and had x-rays performed. She had a recent hospitalization for pancreatitis at the end of October and Dr. Greco had recommended that she have her pancreas checked to make sure that this is not contributing to her current pain. She had other appointments yesterday and could not come to the ER yesterday so she has arrived here today. She denies any nausea vomiting, abdominal pain, fever, difficulty urinating or any other associated symptoms. Her pain is worse with standing. Her pain is somewhat worse with taking a breath. She denies any chest pain. She reports that she did have a fall 3 or 4 weeks ago. She still has some resolving ecchymosis to the right eyebrow. Have you received a tetanus shot in the past 10 years?: Unknown - Patient Home Medications Home Medications: Home Medications Olmesartan/Hydrochlorothiazide [BENICAR HCT] 1 tab ORAL QD #90 tab 11/25/15 escitalopram 20 mg tablet 20 mg PO QDAY #90 tab 03/28/18 mupirocin 2 % topical ointment 1 applic TOPICAL BID #22 g 06/13/18 olmesartan 40 mg-hydrochlorothiazide 12.5 mg tablet 1 tab PO QDAY #90 tab 06/21/18 omeprazole 20 mg capsule,delayed release 40 mg PO QDAY #180 cap 07/13/18 prednisone 10 mg tablet See Rx Instructions PO QDAY #15 tab 10/25/18 Tramadol HCl 1 - 2 tab PO Q8H PRN 10/29/18 Cephalexin [Keflex] 1,000 mg PO Q12H #14 cap 11/05/18 - Patient Allergies Allergies/Adverse Reactions: Allergies Allergy/AdvReac Type Severity Reaction Status Date / Time No Known Allergies Allergy Verified 11/05/18 06:34 Past Medical History - heen HEENT History: Denies History Cardiovascular History: Hypertension, Hyperlipidemia Respiratory History: Snoring Gastrointestinal History: GERD Genitourinary History: Other (please comment) Additional Genitourinary History: 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 Endocrine History: Denies History Musculoskeletal History: Arthritis, Back Pain Prosthesis or Implant: Yes (B KNEE) Additional Musculoskeletal History: psoriatic arthritis Neurological History: Migraines Blood Disorders: Denies History Psychiatric History: Depression, Anxiety Disorders History of Sexually Transmitted Diseases: No Female Reproductive History: Denies History Cancer History: Skin In Past Year Been Physically Harmed or Verbally Threatened: No History of MDRO: No History of Other Communicable Diseases: No Tobacco Use: Current Every Day Smoker Alcohol Use: Occasionally In the Past 12 Months, Have Used or Abuse Any Substance: None Previous Surgical History: Yes Type / Date of Surgery: SHOAIB TKR. PARTIAL HYST. NECK FUSION. RIGHT ANKLE SURGERY. PARTIAL RIGHT KIDNEY REMOVAL DUE TO A BENIGN MASS Anesthesia Reactions: No Malignant Hyperthermia: No Significant Family History: No pertinent family hx Additional Family History: MOTHER-HEART/CA Past Medical History Reviewed: Reviewed - No Changes ROS - Limitations ROS Limitations: No Limitations Constitution: DENIES: Fever Cardiovascular: DENIES: Chest Pain, Heart Palpitations, Edema Respiratory: REPORTS: Hurts To Breathe. DENIES: Cough Non Productive, Cough Productive, Shortness Of Breath Neurological: DENIES: Headache, Numbness, Weakness Gastrointestinal: DENIES: Abdominal Pain, Nausea, Vomitting, Diarrhea Musculoskeletal: DENIES: Calf Pain, Lower Extremity Swelling Genitourinary: DENIES: Dysuria, Hematuria, Difficulty Urinating Eyes: REPORTS: Denies Symptoms ENT: REPORTS: Denies Symptoms Skin: DENIES: Rash General Adult Exam - General Appearance General Appearance: POSITIVE: Alert, Cooperative, No Acute Distress - HEENT HEENT: POSITIVE: Head Inspection Nml (She does have some resolving ecchymosis to the right forehead just above the eyebrow), Eyes Inspection Nml, Ears Inspection Nml, Nose Inspection Nml, Pharynx Inspect. Nml, PERRL, EOMI - Neck Neck: POSITIVE: Normal Inspection. NEGATIVE: Lymphadenopathy - Respiratory Respiratory: POSITIVE: No Respiratory Distress, Breath Sounds Normal - Cardiovascular Cardiovascular: POSITIVE: Regular Rate & Rhythm, No Murmur Peripheral Pulses: Dorsalis-pedis (R): 2+, Dorsalis-pedis (L): 2+ - Abdomen Abdomen: Soft: (All Quadrants), Denies Tenderness: (All Quadrants) - Back Back: POSITIVE: Other (She does have tenderness in the mid to lower thoracic region as well as some tenderness in the lumbar region, no obvious swelling or erythema.) - Skin Skin: POSITIVE: Normal Color, No Rash - Extremities Extremity: Normal ROM: (All Extremities), Normal Inspection: (All Extremities) - Neurological / Psychological Neurological: POSITIVE: Oriented X3, fusing machine feeder Normal As Tested, Motor Normal, Sensation Normal General Adult Progress - Results Reviewed by me Xrays/CTs/US Reviewed by me: Yes Discussed with Radiologist: Yes Radiology Findings: CT scan of the abdomen and pelvis with out contrast shows no obstructive uropathy per radiologist. Lab Results Reviewed by Me: Yes Lab Results:: Laboratory Results 11/22/18 11/22/18 11/22/18 11:55 11:55 11:55 WBC 4.00 L RBC 2.92 L Hgb 10.6 L Hct 30.7 L MCV 105.1 H MCH 36.3 H MCHC 34.5 RDW Std Deviation 50.3 H RDW Coeff of Louis 13.5 Plt Count 179 MPV 9.3 Immature Gran % (Auto) 0.3 Neut % (Auto) 55.6 Lymph % (Auto) 28.5 [place] % (Auto) 10.0 Eos % (Auto) 5.3 Baso % (Auto) 0.3 Immature Gran # (Auto) 0.01 Neut # (Auto) 2.23 Lymph # (Auto) 1.14 [place] # (Auto) 0.40 Eos # (Auto) 0.21 Baso # (Auto) 0.01 WBC Morphology Comment Normal morphology Plt Morphology Comment Normal morphology RBC Morph Comment Normal morphology D-Dimer 996 H Sodium 132 L Potassium 3.8 Chloride 94 L Carbon Dioxide 23 Anion Gap 15 BUN 23 H Creatinine 1.9 H Estimated GFR 26 BUN/Creatinine Ratio 12.10 Glucose 92 Calculated Osmolality 277.0 Calcium 8.7 Magnesium 0.9 L Total Bilirubin 0.5 AST 49 H ALT 36 Alkaline Phosphatase 83 Troponin I C-Reactive Protein < 0.5 Total Protein 7.2 Albumin 3.9 Globulin 3.3 Albumin/Globulin Ratio 1.10 L Amylase Lipase 11/22/18 11/22/18 11:55 11:55 WBC RBC Hgb Hct MCV MCH MCHC RDW Std Deviation RDW Coeff of Louis Plt Count MPV Immature Gran % (Auto) Neut % (Auto) Lymph % (Auto) [place] % (Auto) Eos % (Auto) Baso % (Auto) Immature Gran # (Auto) Neut # (Auto) Lymph # (Auto) [place] # (Auto) Eos # (Auto) Baso # (Auto) WBC Morphology Comment Plt Morphology Comment RBC Morph Comment D-Dimer Sodium Potassium Chloride Carbon Dioxide Anion Gap BUN Creatinine Estimated GFR BUN/Creatinine Ratio Glucose Calculated Osmolality Calcium Magnesium Total Bilirubin AST ALT Alkaline Phosphatase Troponin I < 0.012 C-Reactive Protein Total Protein Albumin Globulin Albumin/Globulin Ratio Amylase 31 Lipase 182 CBC and BMP: 11/22/18 11:55 11/22/18 11:55 - Patient's Progress MDM / ED Course: I did review recent hospital notes and x-ray reports. The patient does have multiple compression fractures which are chronic in the mid and lower thoracic s pine as well as L2 according to recent x-rays which were done yesterday. Her EKG shows normal sinus rhythm with no ST segment or T-wave changes. Blood work reveals a hemoglobin of 10.2 which is the level where her hemoglobin has been running the past several months. Her d-dimer is elevated at 996. Her troponin and BNP were normal. Her creatinine is elevated at 1.9. Her creatinine had been mildly elevated during her last hospitalization at 1.6 and had returned to a baseline of 0.7 prior to discharge. Her magnesium currently is also low at 0.9. She was given magnesium 2 g IV as well as 1 L bolus of normal saline. CT of the abdomen and pelvis noncontrast was ordered to evaluate her kidneys. In addition a ventilation/perfusion scan was ordered to rule out pulmonary embolus. The CT scan of the abdomen and pelvis without IV contrast showed no evidence of obstructive uropathy per radiologist. The VQ scan could not be done until tomorrow morning. Because of the patient's worsening renal function, significant hypomagnesemia and inability to completely rule out PE it was decided that it would be safest to admit the patient for further care and evaluation. I did discuss these findings and recommendations with the patient and she is in agreement with this plan. Dr. Santos has agreed to admit the patient. - Consult Counseled: POSITIVE: Patient, RE: Lab Results, RE: Radiology Results, RE: DX, RE: Need for F/U Patient Care Time - Estimated PCT Patient Care Time (In Minutes): 45 Vital Signs - Recent Vital Signs Vital Signs: Vital Signs (Last 8 hours) Temp Pulse Resp BP Pulse Ox 11/22/18 11:37 97.4 F 95 16 103/79 97 - VS Reviewed Vital Signs Reviewed: Yes Discharge Clinical Impression: History of vertebral compression fracture, Hypomagnesemia, Elevated serum creatinine Discharge Disposition: Admit to Inpatient Condition: Fair Patient Problem(s) Reviewed: Yes Follow Up With: MITCHEL GONZALEZ FNP [Primary Care Provider] - Date Decision to Admit to Inpatient: 11/22/18 Time Decision to Admit to Inpatient: 13:45
[2018-11-22 12:21] LABS: BLOOD UREA NITROGEN 23 mg/dL (7-22); SERUM ALBUMIN 3.9 g/dL (3.5-4.8)
[2018-11-22] MEDS ORDERED: Magnesium Sulfate 2gm (Premix) 2 GM/50 ML BAG IV ONE ×2 (12:39→14:00)
[2018-11-22] MEDS ORDERED: Sodium Chloride 0.9% 1,000 ML PRIMARY IV ONE (12:39)
--- NOTE | 2018-11-22 13:46 | DI ---
CT ABDOMEN SCAN WITHOUT IV CONTRAST, 11/22/2018 12:39 PM : Clinical History: Back pain. Elevated creatinine level. Previous Exam: 10/28/2018. IV Contrast: None administered. Oral Contrast: No oral contrast ordered. Rectal Contrast: No rectal contrast ordered. Lungs: No infiltrate or effusion. Heart: The right and left ventricular chamber sizes are normal and actually are visible on the noncon trast scan suggesting this patient has anemia. Liver: Fatty infiltration. Gallbladder: Grossly normal. Adrenal Glands: Normal. Spleen: Normal. Pancreas: Normal. Kidneys: Normal size, shape, position and contour. Calcification versus sutures are present along the inferior pole of the right kidney. No hydronephrosis or hydroureter. No renal or ureteral calculi. Lymph Nodes: Normal. Masses: None. Ascites: No ascites. Free Air: None. Spine: The lower thoracic spine shows an osteoporotic compression fracture of T10 and there is a comp ression fracture of L2. There is severe lumbar disc space narrowing at every level. No canal or neura l foraminal stenosis is present between T12-L1 through L5-S1. Every level has mild bulging but not he rniated discs. READIN. No obstructive uropathy noted. Calcifications versus sutures are present along the lower pole of the right kidney. 2. There is chronic disc space narrowing at every lumbar level with mild bulging but not herniated d iscs and no canal or neural foraminal stenosis in the lumbar spine. Old osteoporotic compression frac tures of T10 and L2. 3. Probable anemia and fatty infiltration of the liver. CT PELVIS SCAN WITHOUT IV CONTRAST, 11/22/2018 12:39 PM: Clinical History: See above. Previous Exam: 10/28/2018. Contrast: None administered. Masses: No masses or enhancing lesions. Ascites: None. Free Air: None. Lymph Nodes: No adenopathy. Appendix: Normal. Small Bowel: Normal small bowel, terminal ileum, and ileocecal valve. Colon: Normal. Uterus: Status post hysterectomy. Ovaries: Status post bilateral salpingo-oophorectomy. Bladder: Normal. Hernias: There is a small umbilical hernia through which only mesenteric fat has herniated. Bony Pelvis: Normal sacrum, pelvic bones, and hips. READING: Normal CT scan of the pelvis without IV contrast.
[2018-11-22] MEDS ORDERED: traMADol 50 MG TABLET PO PRN (14:00)
[2018-11-22] MEDS ORDERED: predniSONE Tab 10 MG TAB PO SCH (14:00)
[2018-11-22] MEDS ORDERED: LIDOCAINE W/ SODIUM BICARB 0.5 ML SYR SUBD PRN (14:00)
[2018-11-22] MEDS: OMEPRAZOLE 20 MG CAPSULE PO SCH (14:20)
[2018-11-22] MEDS: Lactated Ringers 1,000 ML PRIMARY IV SCH ×2 (14:21→23:07)
--- NOTE | 2018-11-22 16:29 | DI ---
VENOUS DOPPLER ULTRASOUND OF BOTH LOWER EXTREMITIES, 11/22/2018 2:49 PM: Clinical History: Elevated D-dimer test. Previous Exam: None. Technique: 2D real-time imaging and color Doppler ultrasound with compression and augmentation maneuv ers. Deep Venous System: Normal deep venous system from groin to popliteal fossa bilaterally. Superficial Venous System: Normal greater saphenous vein bilaterally. Lower Leg Edema: Edema is present in both lower legs. Reading: Negative venous Doppler ultrasound of both lower extremities for deep vein thrombosis.
--- NOTE | 2018-11-22 16:37 | PDOC ---
HPI - History of Present Illness History of Present Illness: This very nice 68-year-old female who was admitted through the emergency department she was seen in Dr. Cassi Greco's office yesterday and had acute onset of mid back pain on the right side and the she tells me it's hard to take a deep breath as well she remembers this is being acute and happening all of a sudden. She says she usually has pain in her back and was not worried about it too much but was sent to the ER because of the pain on deep inspiration Past Medical History Medical History: 1. Hypertension. 2. History of psoriatic arthritis, she said she was on Enbrel and was switched to IV infusion not sure about the name the last one was a few months ago. 3. History of hypercholesterolemia. 4. Histo ry of depression Surgical History: 1. History of hysterectomy. 2. History of lumbar spinal fusion. 3. History of knee replacement. 4. History of removal of the lower parts of the right kidney, she said is not malignant Family History: Reviewed an Not Pertinent Past Social History: She doesn't smoke, no drugs, she said that she drinks a few times a month. Tobacco Use: Never Smoker In the Past 12 Months, Have Used or Abuse Any of the Following Substance: None Medication / Allergies Home Medications: Home Medications Medication Instructions Recorded Confirmed Olmesartan/Hydrochlorothiazide 1 tab ORAL QD #90 tab 11/25/15 02/04/16 [BENICAR HCT] escitalopram 20 mg tablet 20 mg PO QDAY #90 tab 03/28/18 10/28/18 mupirocin 2 % topical ointment 1 applic TOPICAL BID #22 g 06/13/18 10/28/18 olmesartan 40 1 tab PO QDAY #90 tab 06/21/18 10/28/18 mg-hydrochlorothiazide 12.5 mg tablet omeprazole 20 mg capsule,delayed 40 mg PO QDAY #180 cap 07/13/18 10/28/18 release Tramadol HCl 1 - 2 tab PO Q8H PRN 10/29/18 10/29/18 Cephalexin [Keflex] 1,000 mg PO Q12H #14 cap 11/05/18 Allergies/Adverse Reactions: Allergies Allergy/AdvReac Type Severity Reaction Status Date / Time No Known Allergies Allergy Verified 11/05/18 06:34 Review of Systems - Review of Systems All Systems: Reviewed & No Additional Complaints Except as Stated - Respiratory Respiratory: REPORTS: Pleuritic Pain - Cardiovascular Cardiovascular: DENIES: Negative System Review, Chest Pain, Edema, Syncope, Palpitations, Orthopnea, Paroxysmal Nocturnal Dyspnea, Other, See HPI Exam - Vitals Vital Signs: Vital Signs Temperature 97.2 F Temperature Source Temporal Artery Scan Pulse Rate [Pulse Oximeter] 82 Pulse Rate 72 Respiratory Rate 16 Blood Pressure [Right Arm] 119/82 Blood Pressure [Left Arm] 103/79 Pulse Ox 98 Oxygen Delivery Method Room Air Height 5 ft 6 in Weight 179 lb 9.6 oz - General General Appearance: No Acute Distress, Cooperative - Neck Neck Exam: Normal Inspection, Full ROM, No Tenderness, No Lymphadenopathy, No Thyromegaly, JVP is not Raised - Respiratory Respiratory Exam: POSITIVE: Clear to Auscultation - Bilaterally, Breathing Non Labored, Normal To Percussion, Normal to Percussion and Palpation - Cardiovascular Cardiovascular Exam: POSITIVE: RRR, No Murmur, No Clicks, No Gallops, No Rubs, PMI Non-Displaced Additional Cardiovascular Details: Some pain on deep inspiration on the right side - GI/Abdominal GI/Abdominal Exam: POSITIVE: Normal Bowel Sounds, Non Tender, Non Distended, Soft, No Masses, No Hepatomegaly, No Splenomegaly, No Organomegaly - Extremities Extremities Exam: POSITIVE: No Clubbing Present, No Edema Present Results - Labs CBC and BMP: 11/22/18 11:55 11/22/18 11:55 Assessment and Plan - Patient Problems (1) Elevated serum creatinine Current Visit: Yes Status: Acute Comment: Heart will hydrate the patient most likely prerenal hopefully will get her BUN and creatinine within normal range to order a CTA of her chest to rule out PE. Me and the patient discussed this she did confirm to me that her pain was acute, non-and she has pain on deep inspiration we will empirically treat her with L a course of fluid in her creatinine and BUN we will normalize tomorrow to rule out PE. She does understand that without requests she has a ma aileen chance of bleeding I told her that we could do a VQ scan it wouldn't be as accurate in [place] rather do the first option and not also is not interested in the nuclear medicine test Code(s): R79.89 - Other specified abnormal findings of blood chemistry (2) Hypomagnesemia Current Visit: Yes Status: Acute Comment: Replete magnesium follow labs Code(s): E83.42 - Hypomagnesemia
[2018-11-22] MEDS: Apixaban 5 MG TABLET PO SCH (20:14)
[2018-11-22] MEDS ORDERED: ESCITALOPRAM 10 MG TABLET PO SCH (21:00)
[2018-11-22 23:31] VITALS: RESP 16
[2018-11-23 05:27] LABS: BASOPHILS # (AUTO) 0.02 10*3/UL; BASOPHILS % (AUTO) 0.6 % (0-1); EOSINOPHILS # (AUTO) 0.17 10*3/UL; EOSINOPHILS % (AUTO) 5.4 % (0-8); Hematocrit [HCT] 26.3 % (37.0-47.0); Hemoglobin [HGB] 9.1 g/dL (12.0-16.0); MEAN CORPUSCULAR HEMOGLOBIN 36.4 PG (27-31); MEAN CORPUSCULAR HGB CONC 34.6 g/dL (33-37); MEAN CORPUSCULAR VOLUME 105.2 FL (81-99); MEAN PLATELET VOLUME 9.8 FL (7.4-12.2); MONOCYTES # (AUTO) 0.38 10*3/UL (0.3-0.8); NEUTROPHILS # (AUTO) 1.29 10*3/UL; NEUTROPHILS % (AUTO) 40.9 % (50-80)
[2018-11-23 05:33] LABS: PLATELET MORPHOLOGY COMMENT NORMAL MORPHOLOGY (NORM); RBC MORPHOLOGY COMMENT NORMAL MORPHOLOGY (NORM); WBC MORPHOLOGY COMMENT NORMAL MORPHOLOGY (NORM)
[2018-11-23 05:45] LABS: BLOOD UREA NITROGEN 15 mg/dL (7-22); BUN/CREATININE RATIO 16.66 (6-20); SERUM ALBUMIN 2.9 g/dL (3.5-4.8)
[2018-11-23 06:33] VITALS: BP 115/79; TEMP 97.8; O2SAT 98
[2018-11-23] MEDS: Lactated Ringers 1,000 ML PRIMARY IV SCH (07:45)
[2018-11-23] MEDS ORDERED: Magnesium Sulfate 2gm (Premix) 2 GM/50 ML BAG IV ONE (07:52)
[2018-11-23] MEDS: Apixaban 5 MG TABLET PO SCH (09:11)
[2018-11-23] MEDS: OMEPRAZOLE 20 MG CAPSULE PO SCH (09:12)
--- NOTE | 2018-11-23 09:22 | DI ---
CT ANGIOGRAM OF THE CHEST, 11/23/2018 7:51 AM : Clinical History: Shortness of breath. Previous Exam: None at this facility. Technique: Scans from base of neck to lung bases with IV contrast. Bolus tracking protocol was used f or timing the injection. Non-MIPS and MIPS sagittal/coronal images generated. IV Contrast: 60 mL of Ultravist 370.. Base of Neck: Normal. Nodes: Normal axillary, supraclavicular, mediastinal, and hilar lymph nodes. Heart: Mild left atrial enlargement. Calcifications are present in the proximal and middle thirds of the LAD in the distal portion of the left circumflex artery. Aorta: The ascending aorta is mildly ectatic without evidence of dissection. Pulmonary Arteries: Normal. No pulmonary emboli or infarcts; there is pulmonary hypertension. Mediastinum: Normal. Lungs: No infiltrates. Effusion(s): None. Nodules: None. Bony Structures: Normal visualized portions of ribs, sternum, scapulae, clavicles, and shoulders. Nor mal visualized portions of thoracic spine. Limited Upper Abdomen: Normal adrenal glands and spleen. Normal limited views of liver and pancreas. READIN. Negative CTA of the chest. There are no pulmonary emboli or pulmonary infarcts. There is pulmonar y arterial hypertension. 2. No acute infiltrate or effusion.
--- NOTE | 2018-11-23 12:03 | DCSUMMARY ---
Hospitalization Summary Hospital Course: Final Discharge Diagnosis: Current Visit Problems Problem Status Onset Code History of vertebral compression fracture Acute Z87.81 Hypomagnesemia Acute E83.42 Elevated serum creatinine Acute R79.89 Diagnostic Data, Laboratory Data, and Procedures of Signifigance: Current Visit Problems Problem Status Onset Code History of vertebral compression fracture Acute Z87.81 Hypomagnesemia Acute E83.42 Elevated serum creatinine Acute R79.89 History and Physical pertinent to Admission: Course of Hospitalization: This very nice 68-year-old female who was sent to the ER by Dr. Greco for back pain. Her back pain came on acutely and also had some pleuritic pain and pain on inspiration. In the ER she was found to have a very low magnesium and also some renal failure. Patient was admitted because of her high suspicion of her pleuritic pain and acute onset she was started on anticoagulation for possible PE treatment patient had refused a nuclear the scan VQ scan and hydrated the patient and her BUN and creatinine normalized most likely from dehydration and prerenal state and was able to get a CTA this morning which revealed no pulmonary embolism or pneumonia. Patient's pleuritic chest pain also disappeared and most likely she's been walking the hallways and it only hurts her a little bit and most likely is from her compression fractures her actual lites were replaced with the 6 g of magnesium and BUN and creatinine normalized as well she is back to her normal self will be discharged home in stable and improved condition On the date of discharge, the patient was examined: Gen.: No acute distress, alert, nontoxic Heart: Regular rate and rhythm, no murmurs, clicks, gallops, or rubs Lungs: Clear to auscultation bilaterally, breathing is nonlabored Abdomen/GI: Normal tones on auscultation, soft, nontender, nondistended Musculoskeletal/extremities: No clubbing, cyanosis, or edema Vitals reviewed and are listed below Vital Signs (24 hrs) 11/22/18 14:27 11/22/18 14:44 11/22/18 15:00 Temperature 97.2 F 97.2 F Pulse Rate 72 Pulse Rate Pulse Oximeter 82 82 Respiratory Rate 16 16 Blood Pressure Right Arm 119/82 119/82 Pulse Ox 98 98 11/22/18 16:45 11/22/18 19:00 11/22/18 20:05 Temperature 97.8 F 98.6 F Pulse Rate 71 Pulse Rate Pulse Oximeter 67 72 72 Respiratory Rate 16 20 Blood Pressure Right Arm 117/69 119/69 Pulse Ox 99 97 11/22/18 23:00 11/22/18 23:30 11/23/18 03:00 Temperature 97.4 F Pulse Rate 74 69 Pulse Rate Pulse Oximeter 67 Respiratory Rate 16 Blood Pressure Right Arm 117/57 Pulse Ox 94 11/23/18 03:11 11/23/18 06:29 11/23/18 07:00 Temperature 98.1 F 97.8 F Pulse Rate 63 Pulse Rate Pulse Oximeter 72 69 Respiratory Rate 16 16 Blood Pressure Right Arm 129/74 115/79 Pulse Ox 94 98 Assessment and Plan: 1. As per discharge assessments above 2. Disposition: Home 3. Condition on discharge, stable and improved. 4. Diet: regular diet 5. Activities: resume normal activities 6. Follow-Up: 1. PCP 2. 7. Medications at the Time of Discharge: Home Medications Medication Instructions Recorded Confirmed Olmesartan/Hydrochlorothiazide 1 tab ORAL QD #90 tab 11/25/15 02/04/16 [BENICAR HCT] escitalopram 20 mg tablet 20 mg PO QDAY #90 tab 03/28/18 11/23/18 olmesartan 40 1 tab PO QDAY #90 tab 06/21/18 11/23/18 mg-hydrochlorothiazide 12.5 mg tablet omeprazole 20 mg capsule,delayed 40 mg PO QDAY #180 cap 07/13/18 11/23/18 release Tramadol HCl 1 - 2 tab PO Q8H PRN 10/29/18 11/23/18 8. Time, care, counseling and coordination of care for this discharge is greater than 30 minutes. Exam - Vitals Vital Signs: Vital Signs Temperature 97.8 F Temperature Source Oral Pulse Rate [Pulse Oximeter] 69 Pulse Rate 63 Respiratory Rate 16 Blood Pressure [Right Arm] 115/79 Blood Pressure [Left Arm] 103/79 Pulse Ox 98 Oxygen Delivery Method Room Air Height 5 ft 6 in Weight 177 lb 12.8 oz Patient Problems - Patient Problem List (1) Elevated serum creatinine Current Visit: Yes Status: Acute Code(s): R79.89 - Other specified abnormal findings of blood chemistry Category: Medical (2) Hypomagnesemia Current Visit: Yes Status: Acute Code(s): E83.42 - Hypomagnesemia Category: Medical
== END 2018-11-23 12:30 | disposition home or self-care (01) | DRG 951 ==
LOC: ER 11:20 → MED/SURG 13:57
PROVIDERS: ADMIT Internal Medicine; ATTEND Internal Medicine